=== PATIENT | female | born 1955 | race Caucasian/White ===

== ENCOUNTER → 2017-07-25 | Outpatient (CLI) | payer BC ==
[2016-11-16 13:26] VITALS: BP 118/77
--- NOTE | 2017-07-31 08:31 | MG ---
Examination: Bilateral screening mammogram. Clinical history: Routine screening. Technique: Digital CC and MLO views of both breasts were obtained. Computer aided detection analysis was performed and used during the interpretation. Comparison: 10/11/2015. Findings: The breasts are heterogeneously dense, reducing the sensitivity of mammography. Benign-appearing calc ifications are noted in the breasts bilaterally. No suspicious mass, area of architectural distortion or suspicious cluster of microcalcifications is noted. Impression: 1. No mammographic evidence of malignancy. BI-RADS category 2-benign findings. Recommend routine annual screening mammogram. Diagnostic CAD was utilized and reviewed. * 0 (ZERO) - ASSESSMENT INCOMPLETE; ADDITIONAL IMAGING IS NEEDED. * 0C - ASSESSMENT INCOMPLETE, NEEDS ADDITIONAL IMAGING EVALUATION AND/OR PRIOR MAMMOGRAMS FOR COMPARI SON. * 1/1 (ONE) - NEGATIVE. * 2/II (TWO) - BENIGN FINDINGS. * 3/III (THREE) - PROBABLY BENIGN FINDING; SHORT INTERVAL FOLLOW-UP SUGGESTED. * 4/IV (FOUR) - SUSPICIOUS ABNORMALITY; BIOPSY SHOULD BE CONSIDERED. * 5/V - HIGHLY SUSPICIOUS OF MALIGNANCY; BIOPSY SHOULD BE PERFORMED. * 6/IV - KNOWN BIOPSY PROVEN MALIGNANCY-APPROPRIATE ACTION SHOULD BE TAKEN. A NEGATIVE X-RAY REPORT SHOULD NOT DELAY BIOPSY IF A DOMINANT OR CLINICALLY SUSPICIOUS MASS IS PRESENT; 4 TO 8 PERCENT OF CANCERS ARE NOT IDENTIFIED BY X-RAY. A NEGATIVE REPORT MAY REINFORCE THE CLINICAL IMPRESSION. ADENOSIS AND DENSE BREASTS MAY OBSCURE AN UNDERLYING NEOPLASM. Reported By:
== END ==
LOC: RAD 07:52
PROVIDERS: ATTEND Internal Medicine
DX: Z12.31 Encounter for screening mammogram for malignant neoplasm of breast (principal)
CPT/HCPCS: 77067

== ENCOUNTER 2020-05-16 09:27 | Inpatient (IN) ==
[2020-05-16] MEDS ORDERED: REMDESIVIR (INVESTIGATIONAL DRUG GS-5734) IV ONE (11:00)
[2020-05-16] MEDS ORDERED: REMDESIVIR **DO NOT USE THIS ITEM# ** 200 MG in NS 250 ML IV 250 ML IV ONE (11:47)
[2020-05-16] MEDS ORDERED: DUONEB 0.5 MG/3 MG (3 mL) NEB ONE (12:01)
[2020-05-16] MEDS: DUONEB 0.5 MG/3 MG (3 mL) NEB SCH ×3 (12:25→21:00)
[2020-05-16 12:30] LABS: BASOPHILS % (AUTO) 0.2 % (0.2-1.0); HEMATOCRIT 38.8 % (36.0-47.0); HEMOGLOBIN 13.1 g/dL (12.0-16.0); LYMPHOCYTES # (AUTO) 0.7 X10^3/uL (1.3-2.9); LYMPHOCYTES % (AUTO) 14.2 % (21.0-51.0); MEAN CORPUSCULAR HEMOGLOBIN 30.2 pg (27.0-34.0); MEAN CORPUSCULAR HGB CONC 33.6 g/dL (33.0-35.0); MEAN CORPUSCULAR VOLUME 89.7 fL (80.0-100.0); MEAN PLATELET VOLUME 8.4 fL (7.4-11.0); MONOCYTES # (AUTO) 0.3 x10^3/uL (0.3-0.8); MONOCYTES % (AUTO) 5.3 % (0.0-13.0); NEUTROPHILS # (AUTO) 3.9 x10^3/uL (2.2-4.8); NEUTROPHILS % (AUTO) 80.3 % (42.0-75.0); PLATELET COUNT 100 X10^3/uL (150.0-450.0); RED BLOOD COUNT 4.33 X10^6/uL (3.5-5.4); RED CELL DISTRIBUTION WIDTH 13.9 % (11.6-16.5); WHITE BLOOD COUNT 4.9 X10^3/uL (3.6-10.0)
[2020-05-16 12:34] LABS: ABG BASE EXCESS 1.6 mmol/L (-2.0-2.0); ABG HCO3 23.7 mmol/L (22-26)
[2020-05-16 12:36] LABS: ABG ALLEN TEST POS
[2020-05-16 12:47] LABS: ALANINE AMINOTRANSFERASE 15 Units/L (12-78); ALBUMIN 2.6 g/dL (3.4-5.0); ALKALINE PHOSPHATASE 48 Units/L (46-116); ASPARTATE AMINO TRANSFERASE 28 Units/L (15-37); BLOOD UREA NITROGEN 10 mg/dL (7-18); CALCIUM 8.1 mg/dL (8.5-10.1); CARBON DIOXIDE 25.2 mmol/L (21-32); CHLORIDE 103 mmol/L (98-107); COR CA(FOR HYPOALB) 9.2 mg/dL (8.5-10.1); CREATININE 1.01 mg/dL (0.55-1.02); SODIUM 138 mmol/L (136-145); TOTAL PROTEIN 6.2 g/dL (6.4-8.2); eGFR NON BLACK RACES 59 (>60)
[2020-05-16] MEDS: PULMICORT NEB TX 0.5 MG NEB SCH ×2 (12:49→21:00)
--- NOTE | 2020-05-16 13:02 | RAD ---
CHEST, 1 VIEWHISTORY: PneumoniaStudy: Single view of the chest.Comparison:NoneFindings:The cardiomediastinal silhouette is normal. Bilateral interstitial prominence, possible early alveolar infiltrates. No focal consolidations, pleural effusions or pneumothorax. Osseous structures demonstrate no acute abnormality.IMPRESSION:1. Bilateral interstitial prominence and early alveolar infiltrates. Findings may represent atypical infection, including viral etiologies.Electronically signed by: PEGGY GÓMEZ (May 16, 2020 13:00:35)
[2020-05-16] MEDS ORDERED: K-RIDER 10 MEQ/NS 100 ML 10 MEQ/100 ML BAG IV PRN (13:41)
[2020-05-16] MEDS ORDERED: POTASSIUM CHL 60 MEQ/NS 0.45% 500 ML IV PRN (13:41)
[2020-05-16] MEDS ORDERED: POTASSIUM CHL 40 MEQ/NS 0.45% 500 ML IV PRN (13:41)
[2020-05-16] MEDS ORDERED: MICRO K EXTEN CAP 10 MEQ PO PRN (13:41)
[2020-05-16] MEDS ORDERED: KLOR-CON PO PRN (13:41)
[2020-05-16] MEDS ORDERED: NS 1/2 1000 ML IV 1,000 ML IV ONE (13:50)
[2020-05-16] MEDS: K-DUR TAB 20 MEQ PO PRN (14:07)
[2020-05-16] MEDS: ZINC SULFATE PO SCH (14:08)
[2020-05-16] MEDS: VSL#3 PO SCH (14:08)
[2020-05-16] MEDS: TESSALON PERLES PO SCH ×3 (14:08→21:40)
[2020-05-16] MEDS: TUSSIONEX PENNKINETIC SUSP PO SCH (14:09)
[2020-05-16] MEDS: ROBITUSSIN DM PO SCH ×5 (14:10→22:00)
[2020-05-16 14:12] VITALS: BMI 29.2
[2020-05-16] MEDS: NS 1/2 1000 ML IV 1,000 ML IV SCH (14:12)
[2020-05-16] MEDS: LEVAQUIN PREMIX IV 500 MG 500 MG/100 ML BAG IV SCH (14:12)
[2020-05-16] MEDS ORDERED: MORPHINE SULFATE INJ 2 MG INJ ONE (15:41)
[2020-05-16] MEDS ORDERED: PHENERGAN TAB 25 MG PO ONE (15:42)
[2020-05-16] MEDS ORDERED: ZOFRAN TAB 4 MG SL PRN (15:51)
[2020-05-16] MEDS ORDERED: MORPHINE SULFATE INJ 2 MG INJ IVP PRN (15:51)
[2020-05-16] MEDS: MAGNESIUM SULFATE 1 GRAM/100 mL PREMIX 1 GM/100 ML BAG IV PRN ×3 (20:21→23:43)
[2020-05-16] MEDS: NORCO 5/325 MG TAB PO PRN (20:23)
[2020-05-16] MEDS ORDERED: SOLU-Medrol 125 MG VIAL ONE (20:49)
[2020-05-16] MEDS: SOLU-Medrol 125 MG VIAL IVP SCH (21:39)
[2020-05-17] MEDS: MAGNESIUM SULFATE 1 GRAM/100 mL PREMIX 1 GM/100 ML BAG IV PRN (00:30)
[2020-05-17] MEDS: TUSSIONEX PENNKINETIC SUSP PO SCH ×2 (01:06→12:48)
[2020-05-17] MEDS: POTASSIUM CHLORIDE LIQ 20 MEQ UDC PO PRN (01:23)
[2020-05-17] MEDS: NS 1/2 1000 ML IV 1,000 ML IV SCH ×2 (03:41→17:41)
[2020-05-17 04:16] LABS: ABG ALLEN TEST POS; ABG BASE EXCESS 1.9 mmol/L (-2.0-2.0); ABG HCO3 25.6 mmol/L (22-26)
[2020-05-17] MEDS: TESSALON PERLES PO SCH ×3 (05:10→21:46)
[2020-05-17] MEDS: SOLU-Medrol 125 MG VIAL IVP SCH ×3 (05:10→21:47)
[2020-05-17 05:11] LABS: BASOPHILS % (AUTO) 0.1 % (0.2-1.0); HEMATOCRIT 37.3 % (36.0-47.0); HEMOGLOBIN 12.4 g/dL (12.0-16.0); LYMPHOCYTES # (AUTO) 0.2 X10^3/uL (1.3-2.9); MEAN CORPUSCULAR HEMOGLOBIN 30.1 pg (27.0-34.0); MEAN CORPUSCULAR HGB CONC 33.3 g/dL (33.0-35.0); MEAN CORPUSCULAR VOLUME 90.3 fL (80.0-100.0); MONOCYTES # (AUTO) 0.1 x10^3/uL (0.3-0.8); MONOCYTES % (AUTO) 3.9 % (0.0-13.0); PLATELET COUNT 98 X10^3/uL (150.0-450.0); RED BLOOD COUNT 4.13 X10^6/uL (3.5-5.4); WHITE BLOOD COUNT 3.4 X10^3/uL (3.6-10.0)
[2020-05-17 05:17] LABS: ALANINE AMINOTRANSFERASE 18 Units/L (12-78); ALBUMIN 2.3 g/dL (3.4-5.0); ALKALINE PHOSPHATASE 45 Units/L (46-116); ASPARTATE AMINO TRANSFERASE 34 Units/L (15-37); BLOOD UREA NITROGEN 7 mg/dL (7-18); CALCIUM 7.4 mg/dL (8.5-10.1); CHLORIDE 103 mmol/L (98-107); COR CA(FOR HYPOALB) 8.8 mg/dL (8.5-10.1); COR NA(FOR HYPERGLY) 138 mmol/L (136-145); CREATININE 0.82 mg/dL (0.55-1.02); MAGNESIUM 2.2 mg/dL (1.7-2.9); SODIUM 135 mmol/L (136-145); TOTAL PROTEIN 5.9 g/dL (6.4-8.2); eGFR NON BLACK RACES > 60 (>60)
--- NOTE | 2020-05-17 06:29 | RAD ---
HISTORYSOBSTUDYCHEST, 1 [id number]/02/2020FINDINGSThe trachea is midline. The cardiac silhouette is unremarkable. Patchy left upper lobe infiltrate. The at infiltrates also suspected in the right upper and right lung base. No pleural effusion or pneumothorax. Left Port-A-Cath unchanged.. The bony thorax is unremarkable.IMPRESSIONLeft upper lobe infiltrate, unchanged. Suspected patchy infiltrates within the right upper and right lower lung jacobs.Electronically signed by: Vin Velazquez (May 17, 2020 06:28:33)
[2020-05-17] MEDS: ZINC SULFATE PO SCH (08:25)
[2020-05-17] MEDS: LEVAQUIN PREMIX IV 500 MG 500 MG/100 ML BAG IV SCH (08:25)
[2020-05-17] MEDS: VSL#3 PO SCH (08:26)
[2020-05-17] MEDS: ROBITUSSIN DM PO SCH ×4 (08:26→21:46)
[2020-05-17] MEDS ORDERED: REMDESIVIR (INVESTIGATIONAL DRUG GS-5734) IV ONE (09:00)
[2020-05-17] MEDS: DUONEB 0.5 MG/3 MG (3 mL) NEB SCH ×2 (09:15→12:00)
[2020-05-17] MEDS: PULMICORT NEB TX 0.5 MG NEB SCH ×2 (09:15→21:50)
[2020-05-17] MEDS: REMDESIVIR **DO NOT USE THIS ITEM# ** 100 MG in NS 250 ML IV 250 ML IV SCH (09:49)
[2020-05-17] MEDS: LOVENOX INJ 40 MG SYR SC SCH (09:50)
[2020-05-17] MEDS: NORCO 5/325 MG TAB PO PRN (10:23)
[2020-05-17] MEDS: MAXZIDE 37.5/25 MG PO SCH (12:49)
[2020-05-17] MEDS: MICRO K EXTEN CAP 10 MEQ PO SCH ×2 (12:49→21:44)
[2020-05-17] MEDS: SINGULAIR TAB 10 MG PO SCH (12:54)
[2020-05-17] MEDS: FLONASE NASAL SPRAY ENOSTRIL SCH (12:55)
[2020-05-17] MEDS: PEPCID TAB 20 MG PO SCH ×2 (12:55→21:45)
[2020-05-17] MEDS: SYNTHROID 137 mcg TAB PO SCH (12:55)
[2020-05-17] MEDS ORDERED: NS 1/2 1000 ML IV 1,000 ML IV ONE (13:51)
[2020-05-17] MEDS ORDERED: XOPENEX 1.25 MG/3 ML NEBULE NEB ONE (16:22)
[2020-05-17] MEDS: XOPENEX 1.25 MG/3 ML NEBULE NEB SCH (17:10)
--- NOTE | 2020-05-17 21:27 | DR.H&P ---
H&P - History & Physical for Day of: H&P Date: 05/16/20 - Chief Complaint Chief Complaint: COUGH, SOB, FEVER, WEAKNESS, GENERALIZED PAIN - History of Present Illness History of Present Illness: IS A 64 YEAR OLD PATIENT OF OURS. SHE PRESENTED TO THE HOSPITAL A DIRECT ADMISSION DUE TO COMPLAINTS OF SHORTENSS OF BREATH, COUGH, FEVER, WEAKNESS, AND GENERALIZED PAIN X 1 WEEK. SHE HAS TESTED POSITIVE FOR COVID-19 AND HAS BEEN TAKING LEVAQUIN, AZITHROMYCIN, TESSALON PERLES TID, A MEDROL DOSE PACK, AND NEB TX AT HOME. SHE DENIES IMPROVEMENT IN SYMPTOMS. SHE REPORTS THAT HER OXYGEN SATURATIONS HAVE BEEN 87%-89% ON ROOM AIR. ON ARRIVAL TO THE ER, VITALS WERE 100.8-64-22-88%RA-114/66. LABS WERE OBTAINED. ABNORMAL LAB VALUES INCLUDE THE FOLLOWING: PLT COUNT 100, PH 7.520, PC02 29.0, P02 50.0, HC03 23.7, 02 SATURATION 89.0, BASE EXCESS 1.6, FI02 21.0. BLOOD AND SPUTUM CULTURES WERE SET UP. A CHEST XRAY WAS OBTAINED AND REVEALED: 1. Bilateral interstitial prominence and early alveolar infiltrates. Findings may represent atypical infection, including viral etiologies. SHE WAS PLACED ON NASAL CANNULA WITH OXYGEN AT 2L/MIN. OXYGEN SATURATIONS REMAINED 89%-LOW 90s. SHE WAS STARTED ON 1/2NS AT 75 ML/HR, REMDESIVIR 200MG IV X 1, THEN 100MG IV DAILY, SOLU-MEDROL 125MG IV Q8H, LEVAQUIN 500MG IV DIALY, PULMICORT NEBS BID, XOPENEX NEBS Q6H, LOVENOX 40MG SC DAILY, TUSSIONEX 5ML PO Q12H, ROBITUSSIN DM 0ML PO QID, TESSALON PERLES 200MG PO TID, THE POTASSIUM AND MAGNESIUM PROTOCOLS, AND HER HOME MEDICATIONS WERE RESUMED. OTHERWISE, WE WILL FOLLOW UP WITH AM LABS, CHEST XRAY, ABG, AND CONTINUE TO MONITOR. - Past Medical History Past Medical History: Dyslipidemia, GERD, Hypertension, Hypothyroidism Additional Medical History: MITRAL VALVE PROLAPSE, VALVULAR HEART DISEASE, DIVERTICULOSIS, STRESS INCONTINENCE, MELANOMA - Past Surgical History Surgical History: Hysterectomy Additional Surgical History: SKIN GRAFT LEFT KNEE, MELANOMA REMOVED FROM BACK, ACL REPAIR - Family History Family Medical History: Hypertension - Social History Does patient currently use any type of tobacco product: No Have you used tobacco products in the last 12 months: No Type of Tobacco Use: None Does any household member use tobacco: No Alcohol Use: None Drug Use: None - Medications Home Medications: indomethacin [From Indocin] Adverse Reaction (Verified 05/16/20 13:43) CONTINUE taking the following medications atorvastatin 10 mg PO DAILYHS 05/16/20 [History] clonazepam 1 mg PO DAILYHS 05/16/20 [History] famotidine 40 mg BID 05/16/20 [History] halobetasol propionate 1 applic TOPICAL PRN PRN 05/16/20 [History] levothyroxine 137 mcg PO DAILY 05/16/20 [History] montelukast 10 mg PO DAILY 05/16/20 [History] potassium chloride 10 meq PO BID 05/16/20 [History] fluticasone propionate 2 spray INTRANASAL DAILY 05/17/20 [History] triamterene-hydrochlorothiazid 1 tab PO DAILY 05/17/20 [History] - Review of Systems Constitutional: Fever, Chills, Weakness Eyes: No Symptoms Reported ENT: No Symptoms Reported Respiratory: See HPI, Cough, Shortness of Breath, SOB with Excertion, Wheezing Cardiovascular: No Symptoms Reported Gastrointestinal: No Symptoms Reported Genitourinary: No Symptoms Reported Musculoskeletal: No Symptoms Reported Skin: No Symptoms Reported Neurological: Weakness - Physical Exam Vital Signs: Temperature 98.1 F Pulse Rate 80 Respiratory Rate 31 Blood Pressure 117/60 O2 Sat by Pulse Oximetry 97 Oriented: Normal Eyes: Normal Ear: Normal Nose: Normal Throat: Normal Respiratory: Rhonchi Throughout, Wheezes Throughout Cardiovascular: Normal : Normal Auscultation: Bowel Sounds: Normal Palpation: Normal Tenderness: Normal Skin: Normal Musculoskeletal: Normal Psychiatric: Normal Mood Description: Calm Affect: Normal Speech Pattern: Clear - Assessment/Plan (1) Pneumonia due to COVID-19 virus Status: Acute Plan: ADMIT, 1/2NS AT 75 ML/HR, REMDESIVIR 200MG IV X 1, THEN 100MG IV DAILY, SOLU-MEDROL 125MG IV Q8H, LEVAQUIN 500MG IV DIALY, PULMICORT NEBS BID, XOPENEX NEBS Q6H, LOVENOX 40MG SC DAILY, TUSSIONEX 5ML PO Q12H, ROBITUSSIN DM 0ML PO QID, TESSALON PERLES 200MG PO TID, THE POTASSIUM AND MAGNESIUM PROTOCOLS, AND HER HOME MEDICATIONS WERE RESUMED. (2) Hypoxia Status: Acute (3) Hypokalemia Status: Acute (4) Melanoma Qualifiers: Melanoma location: unspecified site Qualified Code(s): C43.9 - Malignant melanoma of skin, unspecified Status: Chronic - Allergies Allergies/Adverse Reactions: Allergies Allergy/AdvReac Type Severity Reaction Status Date / Time indomethacin [From Indocin] AdvReac Verified 05/16/20 13:43
[2020-05-17] MEDS: LIPITOR TAB 10 MG PO SCH (21:43)
[2020-05-17] MEDS: KLONOPIN TAB 1 MG PO SCH (21:43)
[2020-05-18] MEDS: TUSSIONEX PENNKINETIC SUSP PO SCH ×3 (00:31→23:55)
[2020-05-18] MEDS: XOPENEX 1.25 MG/3 ML NEBULE NEB SCH ×4 (00:45→17:35)
[2020-05-18] MEDS ORDERED: NS 1/2 1000 ML IV 1,000 ML IV ONE (02:22)
[2020-05-18] MEDS: NS 1/2 1000 ML IV 1,000 ML IV SCH ×3 (03:00→22:04)
[2020-05-18 05:08] LABS: BASOPHILS % (AUTO) 0.1 % (0.2-1.0); HEMATOCRIT 36.6 % (36.0-47.0); HEMOGLOBIN 12.4 g/dL (12.0-16.0); LYMPHOCYTES # (AUTO) 0.7 X10^3/uL (1.3-2.9); LYMPHOCYTES % (AUTO) 8.6 % (21.0-51.0); MEAN CORPUSCULAR HEMOGLOBIN 30.3 pg (27.0-34.0); MEAN CORPUSCULAR HGB CONC 33.9 g/dL (33.0-35.0); MEAN CORPUSCULAR VOLUME 89.4 fL (80.0-100.0); MEAN PLATELET VOLUME 8.5 fL (7.4-11.0); MONOCYTES # (AUTO) 0.3 x10^3/uL (0.3-0.8); MONOCYTES % (AUTO) 4.2 % (0.0-13.0); NEUTROPHILS % (AUTO) 87.1 % (42.0-75.0); PLATELET COUNT 120 X10^3/uL (150.0-450.0); RED CELL DISTRIBUTION WIDTH 13.8 % (11.6-16.5)
[2020-05-18 05:19] LABS: ALANINE AMINOTRANSFERASE 21 Units/L (12-78); ALBUMIN 2.3 g/dL (3.4-5.0); ALKALINE PHOSPHATASE 47 Units/L (46-116); ASPARTATE AMINO TRANSFERASE 36 Units/L (15-37); BLOOD UREA NITROGEN 10 mg/dL (7-18); CARBON DIOXIDE 25.4 mmol/L (21-32); CHLORIDE 103 mmol/L (98-107); COR CA(FOR HYPOALB) 9.4 mg/dL (8.5-10.1); COR NA(FOR HYPERGLY) 140 mmol/L (136-145); CREATININE 0.87 mg/dL (0.55-1.02); SODIUM 137 mmol/L (136-145); TOTAL PROTEIN 5.9 g/dL (6.4-8.2); eGFR NON BLACK RACES > 60 (>60)
[2020-05-18 05:33] LABS: ABG HCO3 27.4 mmol/L (22-26)
[2020-05-18 05:34] LABS: ABG ALLEN TEST POS
[2020-05-18] MEDS: SOLU-Medrol 125 MG VIAL IVP SCH ×3 (05:43→22:07)
[2020-05-18] MEDS: TESSALON PERLES PO SCH ×3 (05:43→22:07)
--- NOTE | 2020-05-18 06:07 | RAD ---
HISTORYSOBSTUDYCHEST, 1 [id number]/03/2020FINDINGSThe trachea is midline. The cardiac silhouette is unremarkable. Patchy bilateral infiltrates, unchanged. No pleural effusion on the left.. Left Port-A-Cath, unchanged. The bony thorax is unremarkable.IMPRESSIONPatchy bilateral interstitial infiltrates; no significant change from 05/17/2020Electronically signed by: Vin Velazquez (May 18, 2020 06:06:48)
[2020-05-18] MEDS: K-DUR TAB 20 MEQ PO PRN ×4 (06:14→17:30)
[2020-05-18] MEDS: REMDESIVIR **DO NOT USE THIS ITEM# ** 100 MG in NS 250 ML IV 250 ML IV SCH (08:44)
[2020-05-18] MEDS: FLONASE NASAL SPRAY ENOSTRIL SCH (08:44)
[2020-05-18] MEDS: LOVENOX INJ 40 MG SYR SC SCH (08:46)
[2020-05-18] MEDS: MAXZIDE 37.5/25 MG PO SCH (08:47)
[2020-05-18] MEDS: MICRO K EXTEN CAP 10 MEQ PO SCH ×2 (08:47→21:00)
[2020-05-18] MEDS: PEPCID TAB 20 MG PO SCH ×2 (08:48→21:00)
[2020-05-18] MEDS: ROBITUSSIN DM PO SCH ×4 (08:48→21:00)
[2020-05-18] MEDS: SYNTHROID 137 mcg TAB PO SCH (08:49)
[2020-05-18] MEDS: SINGULAIR TAB 10 MG PO SCH (08:49)
[2020-05-18] MEDS: ZINC SULFATE PO SCH (08:50)
[2020-05-18] MEDS: VSL#3 PO SCH (08:50)
[2020-05-18] MEDS ORDERED: REMDESIVIR (INVESTIGATIONAL DRUG GS-5734) IV ONE (09:00)
[2020-05-18] MEDS: PULMICORT NEB TX 0.5 MG NEB SCH ×2 (09:25→21:10)
[2020-05-18] MEDS: LEVAQUIN PREMIX IV 500 MG 500 MG/100 ML BAG IV SCH (10:05)
[2020-05-18] MEDS: ALBUMIN HUMAN 25%- 100 ML 100 ML IV SCH (11:17)
[2020-05-18] MEDS: PROCALAMINE 3 % 1,000 ML IV SCH (11:18)
[2020-05-18] MEDS: PHENERGAN TAB 25 MG PO PRN (13:50)
--- NOTE | 2020-05-18 18:45 | PCM.PROG ---
Progress Note - Progress Note for Day of Date of Exam: 05/17/20 - Subjective Subjective: IS BEING TREATED FOR PNEUMONIA DUE TO COVID-19, PNEUMONIA, AND HYPOXIA. TODAY, SHE IS ALERT AND ORIENTED, LYING IN BED ON MORNING ROUNDS. SHE CONTINUES WITH SHORTNESS OF BREATH AND COUGH TODAY. SHE REPORTS INCREASE IN SHORTNESS OF BREATH TODAY. SHE IS UTILIZING NASAL CANNULA AT 3 LPM. ON EXAMINATION, HEART IS REGULAR IN RATE AND RHYTHM. BILATERAL LUNGS ARE NOTED WITH SCATTERED WHEEZING AND RHONCHI THROUGHOUT. ABDOMEN IS ROUND, SOFT, AND NON-TENDER WITH NORMAL BOWEL SOUNDS NOTED IN ALL QUADRANTS. HER VITALS THIS MORNING ARE: 98.2-70-33-98%-123/71. LABS WERE OBTAINED. ABNORMAL LAB VALUES INCLUDE THE FOLLOWING: WBC 3.4, PLT COUNT 98, SODIUM 135, GLUCOSE 237, GLUCOSE 236, CALCIUM 8.0, FERRITIN 382, CRP 118.50, TOTAL PROTEIN 5.9, ALBUMIN 2.3. AN ABG WAS REPEATED THIS MORNING AND REVEALED: PH 7.460, PC02 36.0, P02 51.0, HC03 25.6, 02 SATURATION 88.0, FI02 32.0. BLOOD AND SPUTUM CULTURES ARE PENDING. A CHEST XRAY WAS OBTAINED AND REVEALED: Left upper lobe infiltrate, unchanged. Suspected patchy infiltrates within the right upper and right lower lung jacobs. SHE IS CURRENTLY RECEIVING 1/2NS AT 75 ML/HR, REMDESIVIR 100MG IV DAILY, SOLU- MEDROL 125MG IV Q8H, LEVAQUIN 500MG IV DAILY, PULMICORT NEBS BID, XOPENEX NEBS Q6H, LOVENOX 40MG SC DAILY, TUSSIONEX 5ML PO Q12H, ROBITUSSIN DM 0ML PO QID, TESSALON PERLES 200MG PO TID, THE POTASSIUM AND MAGNESIUM PROTOCOLS, AND HER HOME MEDICATIONS WERE RESUMED. WE WILL CONTINUE WITH CURRENT PLAN OF CARE TODAY. OTHERWISE, WE PLAN TO FOLLOW UP WITH AM LABS AND CONTINUE TO MONITOR. - Past Medical Family Social History Past Med/Fam/Surg Hx: No changes since H&P Allergies: Allergies indomethacin [From Indocin] Adverse Reaction (Verified 05/16/20 13:43) - Review of Systems ROS: No change since H&P - Vital Signs and I&O's Vital Signs: Temperature 98.8 F Pulse Rate 86 Respiratory Rate 22 Blood Pressure 126/66 O2 Sat by Pulse Oximetry 94 Intake and Output: Intake & Output 05/16/20 05/17/20 05/18/20 05/19/20 11:59 11:59 11:59 11:59 Intake Total 2620 / 2620 2793 / 2793 Balance 2619 / 2620 2793 / 2793 - Physical Exam Oriented: Normal Eyes: Normal Ear: Normal Nose: Normal Throat: Normal Cardiovascular: Normal : Normal Auscultation: Bowel Sounds: Normal Palpation: Normal Tenderness: Normal Skin: Normal Musculoskeletal: Normal Psychiatric: Normal Mood Description: Calm Affect: Normal Speech Pattern: Clear, Appropriate - Laboratory and Diagnostics Result Diagrams: 05/18/20 04:51 05/18/20 16:50 Labs: 05/16/20 12:10 Blood Blood Culture - Preliminary 05/16/20 12:00 Blood Blood Culture - Preliminary 05/17/20 09:38 Sputum - Expectorated Sputum Sputum Culture - Preliminary 05/17/20 09:38 Sputum - Expectorated Sputum - Final Laboratory WBC 8.0 X10^3/uL (3.6-10.0) 05/18/20 04:51 RBC 4.10 X10^6/uL (3.5-5.4) 05/18/20 04:51 Hgb 12.4 g/dL (12.0-16.0) 05/18/20 04:51 Hct 36.6 % (36.0-47.0) 05/18/20 04:51 MCV 89.4 fL (80.0-100.0) 05/18/20 04:51 MCH 30.3 pg (27.0-34.0) 05/18/20 04:51 MCHC 33.9 g/dL (33.0-35.0) 05/18/20 04:51 RDW 13.8 % (11.6-16.5) 05/18/20 04:51 Plt Count 120 X10^3/uL (150.0-450.0) L 05/18/20 04:51 MPV 8.5 fL (7.4-11.0) 05/18/20 04:51 Neut % (Auto) 87.1 % (42.0-75.0) H 05/18/20 04:51 Lymph % (Auto) 8.6 % (21.0-51.0) L 05/18/20 04:51 [place] % (Auto) 4.2 % (0.0-13.0) 05/18/20 04:51 Eos % (Auto) 0.0 % (0.9-2.9) L 05/18/20 04:51 Baso % (Auto) 0.1 % (0.2-1.0) L 05/18/20 04:51 Neut # (Auto) 7.0 x10^3/uL (2.2-4.8) H 05/18/20 04:51 Lymph # (Auto) 0.7 X10^3/uL (1.3-2.9) L 05/18/20 04:51 [place] # (Auto) 0.3 x10^3/uL (0.3-0.8) 05/18/20 04:51 Eos # (Auto) 0.0 x10^3/uL (0.0-0.2) 05/18/20 04:51 Baso # (Auto) 0.0 X10^3/uL (0.0-0.1) 05/18/20 04:51 Absolute Nucleated RBC 0.0 /100WBC 05/18/20 04:51 Sample Site Rr 05/18/20 05:00 ABG pH 7.490 (7.35-7.45) H 05/18/20 05:00 ABG pCO2 36.0 mmHg (35.0-45.0) 05/18/20 05:00 ABG pO2 55.0 mmHg (80.0-100.0) L 05/18/20 05:00 ABG HCO3 27.4 mmol/L (22-26) H 05/18/20 05:00 ABG O2 Saturation 91.0 % (90-100) 05/18/20 05:00 ABG Base Excess 4.0 mmol/L (-2.0-2.0) H 05/18/20 05:00 Juan Test Pos 05/18/20 05:00 A-a Gradient 128.0 mmHg 05/18/20 05:00 FiO2 32.0 05/18/20 05:00 Blood Gas Comments Rola well sw 05/18/20 05:00 Sodium 137 mmol/L (136-145) 05/18/20 04:51 Corrected Sodium 140 mmol/L (136-145) 05/18/20 04:51 Potassium 3.2 mmol/L (3.5-5.1) L 05/18/20 16:50 Chloride 103 mmol/L (98-107) 05/18/20 04:51 Carbon Dioxide 25.4 mmol/L (21-32) 05/18/20 04:51 BUN 10 mg/dL (7-18) 05/18/20 04:51 Creatinine 0.87 mg/dL (0.55-1.02) 05/18/20 04:51 Est GFR (MDRD) Af Amer > 60 (>60) 05/18/20 04:51 Est GFR (MDRD) Non-Af > 60 (>60) 05/18/20 04:51 Glucose 236 mg/dL (65-99) H 05/18/20 04:51 Calcium 8.0 mg/dL (8.5-10.1) L 05/18/20 04:51 Corrected Calcium 9.4 mg/dL (8.5-10.1) 05/18/20 04:51 Magnesium 2.2 mg/dL (1.7-2.9) 05/17/20 04:31 Ferritin 382 ng/mL (8-252) H 05/18/20 04:51 Total Bilirubin 0.20 mg/dL (0.2-1.0) 05/18/20 04:51 AST 36 Units/L (15-37) 05/18/20 04:51 ALT 21 Units/L (12-78) 05/18/20 04:51 Alkaline Phosphatase 47 Units/L (46-116) 05/18/20 04:51 C-Reactive Protein 118.50 mg/L (0-3.0) H 05/18/20 04:51 Total Protein 5.9 g/dL (6.4-8.2) L 05/18/20 04:51 Albumin 2.3 g/dL (3.4-5.0) L 05/18/20 04:51 Globulin 3.6 g/dL (2.5-4.5) 05/18/20 04:51 Albumin/Globulin Ratio 0.6 Ratio (1.1-2.1) L 05/18/20 04:51 - Plan (1) Pneumonia due to COVID-19 virus Status: Acute Plan: 1/2NS AT 75 ML/HR, REMDESIVIR 100MG IV DAILY, SOLU-MEDROL 125MG IV Q8H, LEVAQUIN 500MG IV DIALY, PULMICORT NEBS BID, XOPENEX NEBS Q6H, LOVENOX 40MG SC DAILY, TUSSIONEX 5ML PO Q12H, ROBITUSSIN DM 0ML PO QID, TESSALON PERLES 200MG PO TID, THE POTASSIUM AND MAGNESIUM PROTOCOLS, AND HER HOME MEDICATIONS WERE RESUMED. (2) Hypoxia Status: Acute (3) Hypokalemia Status: Acute (4) Melanoma Status: Chronic Qualifiers: Melanoma location: unspecified site Qualified Code(s): C43.9 - Malignant melanoma of skin, unspecified
[2020-05-18] MEDS: LIPITOR TAB 10 MG PO SCH ×2 (21:00→22:06)
[2020-05-18] MEDS: KLONOPIN TAB 1 MG PO SCH (21:00)
[2020-05-18] MEDS: NORCO 5/325 MG TAB PO PRN (21:00)
--- NOTE | 2020-05-18 21:56 | PCM.PROG ---
Progress Note - Progress Note for Day of Date of Exam: 05/18/20 - Subjective Subjective: IS BEING TREATED FOR PNEUMONIA DUE TO COVID-19, PNEUMONIA, AND HYPOXIA. TODAY, SHE IS ALERT AND ORIENTED, LYING IN BED ON MORNING ROUNDS. SHE CONTINUES WITH SHORTNESS OF BREATH, WEAKNESS, AND COUGH TODAY. SHE DENIES IMPROVEMENT IN SYMPTOMS TODAYSHE IS UTILIZING NASAL CANNULA AT 3 LPM. ON EXAMINATION, HEART IS REGULAR IN RATE AND RHYTHM. BILATERAL LUNGS ARE NOTED WITH SCATTERED WHEEZING AND RHONCHI THROUGHOUT. ABDOMEN IS ROUND, SOFT, AND NON-TENDER WITH NORMAL BOWEL SOUNDS NOTED IN ALL QUADRANTS. HER VITALS THIS MORNING ARE: 97.7-97-22-97%-137/64. LABS WERE OBTAINED. ABNORMAL LAB VALUES INCLUDE THE FOLLOWING: POTASSIUM 3.1, GLUCOSE 236, CALCIUM 8.0, FERRITIN 382, CRP 118.50, TOTAL PROTEIN 5.9, ALBUMIN 2.3. AN ABG WAS REPEATED THIS MORNING AND REVEALED: PH 7.490, PC02 36.0, P02 55.0, HC03 27.4, 02 SATURATION 91, BASE EXCESS 4.0, FI02 32.0. BLOOD AND SPUTUM CULTURES ARE PENDING. A CHEST XRAY WAS OBTAINED AND REVEALED: Patchy bilateral interstitial infiltrates; no significant change from 05/17/2020. SHE IS CURRENTLY RECEIVING 1/2NS AT 75 ML/HR, REMDESIVIR 100MG IV DAILY, SOLU-MEDROL 125MG IV Q8H, LEVAQUIN 500MG IV DAILY, PULMICORT NEBS BID, XOPENEX NEBS Q6H, LOVENOX 40MG SC DAILY, TUSSIONEX 5ML PO Q12H, ROBITUSSIN DM 0ML PO QID, TESSALON PERLES 200MG PO TID, THE POTASSIUM AND MAGNESIUM PROTOCOLS, AND HER HOME MEDICATIONS WERE RESUMED. WE WILL CONTINUE WITH CURRENT PLAN OF CARE TODAY AND ADD PROCALAMINE 40% IV AT 40ML/HR AND ALBUMIN 25% IV DAILY. OTHERWISE, WE PLAN TO FOLLOW UP WITH AM LABS AND CHEST XRAY AND CONTINUE TO MONITOR. - Past Medical Family Social History Past Med/Fam/Surg Hx: No changes since H&P Allergies: Allergies indomethacin [From Indocin] Adverse Reaction (Verified 05/16/20 13:43) - Review of Systems ROS: No change since H&P - Vital Signs and I&O's Vital Signs: Temperature 99.1 F Pulse Rate 82 Respiratory Rate 25 Blood Pressure 132/67 O2 Sat by Pulse Oximetry 95 Intake and Output: Intake & Output 05/16/20 05/17/20 05/18/20 05/19/20 11:59 11:59 11:59 11:59 Intake Total 2620 / 2620 2793 / 2793 1200 / 1200 Balance 2620 / 2620 2793 / 2793 1200 / 1200 - Physical Exam Oriented: Normal Eyes: Normal Ear: Normal Nose: Normal Throat: Normal Cardiovascular: Normal : Normal Auscultation: Bowel Sounds: Normal Tenderness: Normal Skin: Normal Musculoskeletal: Normal Psychiatric: Normal Mood Description: Calm Affect: Normal Speech Pattern: Clear, Appropriate - Laboratory and Diagnostics Result Diagrams: 05/18/20 04:51 05/18/20 16:50 Labs: 05/16/20 12:10 Blood Blood Culture - Preliminary 05/16/20 12:00 Blood Blood Culture - Preliminary 05/17/20 09:38 Sputum - Expectorated Sputum Sputum Culture - Preliminary 05/17/20 09:38 Sputum - Expectorated Sputum - Final Laboratory WBC 8.0 X10^3/uL (3.6-10.0) 05/18/20 04:51 RBC 4.10 X10^6/uL (3.5-5.4) 05/18/20 04:51 Hgb 12.4 g/dL (12.0-16.0) 05/18/20 04:51 Hct 36.6 % (36.0-47.0) 05/18/20 04:51 MCV 89.4 fL (80.0-100.0) 05/18/20 04:51 MCH 30.3 pg (27.0-34.0) 05/18/20 04:51 MCHC 33.9 g/dL (33.0-35.0) 05/18/20 04:51 RDW 13.8 % (11.6-16.5) 05/18/20 04:51 Plt Count 120 X10^3/uL (150.0-450.0) L 05/18/20 04:51 MPV 8.5 fL (7.4-11.0) 05/18/20 04:51 Neut % (Auto) 87.1 % (42.0-75.0) H 05/18/20 04:51 Lymph % (Auto) 8.6 % (21.0-51.0) L 05/18/20 04:51 [place] % (Auto) 4.2 % (0.0-13.0) 05/18/20 04:51 Eos % (Auto) 0.0 % (0.9-2.9) L 05/18/20 04:51 Baso % (Auto) 0.1 % (0.2-1.0) L 05/18/20 04:51 Neut # (Auto) 7.0 x10^3/uL (2.2-4.8) H 05/18/20 04:51 Lymph # (Auto) 0.7 X10^3/uL (1.3-2.9) L 05/18/20 04:51 [place] # (Auto) 0.3 x10^3/uL (0.3-0.8) 05/18/20 04:51 Eos # (Auto) 0.0 x10^3/uL (0.0-0.2) 05/18/20 04:51 Baso # (Auto) 0.0 X10^3/uL (0.0-0.1) 05/18/20 04:51 Absolute Nucleated RBC 0.0 /100WBC 05/18/20 04:51 Sample Site Rr 05/18/20 05:00 ABG pH 7.490 (7.35-7.45) H 05/18/20 05:00 ABG pCO2 36.0 mmHg (35.0-45.0) 05/18/20 05:00 ABG pO2 55.0 mmHg (80.0-100.0) L 05/18/20 05:00 ABG HCO3 27.4 mmol/L (22-26) H 05/18/20 05:00 ABG O2 Saturation 91.0 % (90-100) 05/18/20 05:00 ABG Base Excess 4.0 mmol/L (-2.0-2.0) H 05/18/20 05:00 Juan Test Pos 05/18/20 05:00 A-a Gradient 128.0 mmHg 05/18/20 05:00 FiO2 32.0 05/18/20 05:00 Blood Gas Comments Rola well sw 05/18/20 05:00 Sodium 137 mmol/L (136-145) 05/18/20 04:51 Corrected Sodium 140 mmol/L (136-145) 05/18/20 04:51 Potassium 3.2 mmol/L (3.5-5.1) L 05/18/20 16:50 Chloride 103 mmol/L (98-107) 05/18/20 04:51 Carbon Dioxide 25.4 mmol/L (21-32) 05/18/20 04:51 BUN 10 mg/dL (7-18) 05/18/20 04:51 Creatinine 0.87 mg/dL (0.55-1.02) 05/18/20 04:51 Est GFR (MDRD) Af Amer > 60 (>60) 05/18/20 04:51 Est GFR (MDRD) Non-Af > 60 (>60) 05/18/20 04:51 Glucose 236 mg/dL (65-99) H 05/18/20 04:51 Calcium 8.0 mg/dL (8.5-10.1) L 05/18/20 04:51 Corrected Calcium 9.4 mg/dL (8.5-10.1) 05/18/20 04:51 Magnesium 2.2 mg/dL (1.7-2.9) 05/17/20 04:31 Ferritin 382 ng/mL (8-252) H 05/18/20 04:51 Total Bilirubin 0.20 mg/dL (0.2-1.0) 05/18/20 04:51 AST 36 Units/L (15-37) 05/18/20 04:51 ALT 21 Units/L (12-78) 05/18/20 04:51 Alkaline Phosphatase 47 Units/L (46-116) 05/18/20 04:51 C-Reactive Protein 118.50 mg/L (0-3.0) H 05/18/20 04:51 Total Protein 5.9 g/dL (6.4-8.2) L 05/18/20 04:51 Albumin 2.3 g/dL (3.4-5.0) L 05/18/20 04:51 Globulin 3.6 g/dL (2.5-4.5) 05/18/20 04:51 Albumin/Globulin Ratio 0.6 Ratio (1.1-2.1) L 05/18/20 04:51 - Plan (1) Pneumonia due to COVID-19 virus Status: Acute Plan: 1/2NS AT 75 ML/HR, PROCAL AT 40 ML/HR, ALBUMIN 25% IV DAILY, REMDESIVIR 100MG IV DAILY, SOLU-MEDROL 125MG IV Q8H, LEVAQUIN 500MG IV DIALY, PULMICORT NEBS BID, XOPENEX NEBS Q6H, LOVENOX 40MG SC DAILY, TUSSIONEX 5ML PO Q12H, ROBITUSSIN DM 0ML PO QID, TESSALON PERLES 200MG PO TID, THE POTASSIUM AND MAGNESIUM PROTOCOLS, AND HER HOME MEDICATIONS WERE RESUMED. (2) Hypoxia Status: Acute (3) Hypokalemia Status: Acute (4) Melanoma Status: Chronic Qualifiers: Melanoma location: unspecified site Qualified Code(s): C43.9 - Malignant melanoma of skin, unspecified
[2020-05-19] MEDS: XOPENEX 1.25 MG/3 ML NEBULE NEB SCH ×4 (00:04→17:05)
[2020-05-19] MEDS: PHENERGAN TAB 25 MG PO PRN (01:12)
[2020-05-19] MEDS ORDERED: NS 1/2 1000 ML IV 1,000 ML IV ONE (04:24)
[2020-05-19 05:13] LABS: BASOPHILS % (AUTO) 0 % (0.2-1.0); HEMATOCRIT 36.8 % (36.0-47.0); LYMPHOCYTES # (AUTO) 0.6 X10^3/uL (1.3-2.9); LYMPHOCYTES % (AUTO) 5.5 % (21.0-51.0); MEAN CORPUSCULAR HEMOGLOBIN 29.4 pg (27.0-34.0); MEAN CORPUSCULAR HGB CONC 32.7 g/dL (33.0-35.0); MEAN CORPUSCULAR VOLUME 89.9 fL (80.0-100.0); MEAN PLATELET VOLUME 8.7 fL (7.4-11.0); MONOCYTES # (AUTO) 0.5 x10^3/uL (0.3-0.8); MONOCYTES % (AUTO) 4.5 % (0.0-13.0); NEUTROPHILS # (AUTO) 9.9 x10^3/uL (2.2-4.8); PLATELET COUNT 156 X10^3/uL (150.0-450.0); RED BLOOD COUNT 4.09 X10^6/uL (3.5-5.4); RED CELL DISTRIBUTION WIDTH 14.2 % (11.6-16.5)
[2020-05-19] MEDS: SOLU-Medrol 125 MG VIAL IVP SCH ×3 (05:21→21:04)
[2020-05-19] MEDS: NS 1/2 1000 ML IV 1,000 ML IV SCH ×3 (05:22→23:52)
[2020-05-19 05:33] LABS: ALANINE AMINOTRANSFERASE 23 Units/L (12-78); ALBUMIN 2.6 g/dL (3.4-5.0); ALKALINE PHOSPHATASE 50 Units/L (46-116); ASPARTATE AMINO TRANSFERASE 30 Units/L (15-37); BLOOD UREA NITROGEN 11 mg/dL (7-18); CALCIUM 8.2 mg/dL (8.5-10.1); CARBON DIOXIDE 26.8 mmol/L (21-32); CHLORIDE 104 mmol/L (98-107); COR CA(FOR HYPOALB) 9.3 mg/dL (8.5-10.1); COR NA(FOR HYPERGLY) 143 mmol/L (136-145); SODIUM 139 mmol/L (136-145); TOTAL PROTEIN 5.9 g/dL (6.4-8.2); eGFR NON BLACK RACES > 60 (>60)
--- NOTE | 2020-05-19 06:17 | RAD ---
HISTORYSOBSTUDYCHEST, 1 VIEWCOMPARISON[One day prior]TECHNIQUE[AP view of the chest.]FINDINGS[Left chest wall port with tip in stable position. Cardiac and mediastinal contours appear normal. Stable bilateral multifocal airspace disease. No pleural effusion or pneumothorax.]IMPRESSION[No significant change.]Electronically signed by: Morris Duckworth (May 19, 2020 06:16:06)
[2020-05-19] MEDS: TESSALON PERLES PO SCH ×3 (06:53→21:05)
[2020-05-19] MEDS: FLONASE NASAL SPRAY ENOSTRIL SCH (08:27)
[2020-05-19] MEDS: LEVAQUIN PREMIX IV 500 MG 500 MG/100 ML BAG IV SCH (08:28)
[2020-05-19] MEDS: MAXZIDE 37.5/25 MG PO SCH (08:28)
[2020-05-19] MEDS: LOVENOX INJ 40 MG SYR SC SCH (08:29)
[2020-05-19] MEDS: MICRO K EXTEN CAP 10 MEQ PO SCH ×2 (08:29→21:01)
[2020-05-19] MEDS: VSL#3 PO SCH (08:30)
[2020-05-19] MEDS: ROBITUSSIN DM PO SCH ×4 (08:30→21:02)
[2020-05-19] MEDS: SYNTHROID 137 mcg TAB PO SCH (08:30)
[2020-05-19] MEDS: SINGULAIR TAB 10 MG PO SCH (08:31)
[2020-05-19] MEDS: ZINC SULFATE PO SCH (08:31)
[2020-05-19] MEDS: PULMICORT NEB TX 0.5 MG NEB SCH ×2 (09:15→21:00)
[2020-05-19] MEDS: PEPCID TAB 20 MG PO SCH ×2 (10:27→21:02)
[2020-05-19] MEDS: LOPRESSOR TAB 50 MG PO SCH ×2 (10:27→21:00)
[2020-05-19] MEDS: REMDESIVIR (INVESTIGATIONAL DRUG GS-5734) 200 MG in NS 250 ML IV 250 ML IV SCH (10:27)
[2020-05-19 11:39] LABS: ABG BASE EXCESS 4.2 mmol/L (-2.0-2.0); ABG HCO3 27.3 mmol/L (22-26)
[2020-05-19] MEDS ORDERED: NYSTATIN SUSP ONE (12:11)
[2020-05-19] MEDS: NYSTATIN SUSP PO SCH ×3 (12:13→21:02)
[2020-05-19] MEDS: TUSSIONEX PENNKINETIC SUSP PO SCH (12:13)
[2020-05-19] MEDS: DIFLUCAN 200 MG IV PREMIX* 200 MG/100 ML BAG IV SCH (12:14)
[2020-05-19] MEDS: ALBUMIN HUMAN 25%- 100 ML 100 ML IV SCH (14:00)
[2020-05-19] MEDS: PROCALAMINE 3 % 1,000 ML IV SCH (14:00)
--- NOTE | 2020-05-19 14:46 | CT ---
HISTORYR/O PE, SOBSTUDYCTA CHESTCOMPARISON[Chest radiograph from same day]TECHNIQUEMultiple axial images of the chest were obtained from the thoracic inlet to the upper abdomen [after] the administration of IV contrast. Dose reduction techniques including Automated Exposure Control (AEC) and adjustment of mA and kV were utilized. CTA protocol utilizedFINDINGSThe thyroid gland appears atrophic. The thoracic aorta is normal in caliber with mild scattered atherosclerotic disease. The pulmonary artery is normal in caliber centrally. No filling defect is identified to suggest pulmonary embolus. The heart is normal in size. Trace pericardial fluid. Visualized upper abdomen has a benign appearance. No pathologic adenopathy in the thorax. No acute osseous abnormality. The trachea and mainstem bronchi are patent. There is a crazy paving pattern to the lungs with multifocal ground-glass opacities. This has a upper lung and periphery distribution preference. Small bilateral pleural effusions are present. No pneumothorax.IMPRESSION[Multifocal bilateral ground-glass opacities with a peripheral an upper lobe predominance consistent with COVID-19 pneumonia.] Small pleural effusions. Negative for pulmonary embolism.Electronically signed by: Morris Duckworth (May 19, 2020 14:44:59)
[2020-05-19] MEDS: LIPITOR TAB 10 MG PO SCH (20:59)
[2020-05-19] MEDS: KLONOPIN TAB 1 MG PO SCH (22:34)
[2020-05-20] MEDS: XOPENEX 1.25 MG/3 ML NEBULE NEB SCH ×4 (00:05→16:55)
[2020-05-20] MEDS: TUSSIONEX PENNKINETIC SUSP PO SCH ×2 (03:06→13:00)
[2020-05-20 04:49] LABS: ABG BASE EXCESS 7.4 mmol/L (-2.0-2.0)
[2020-05-20 04:52] LABS: ABG HCO3 31.2 mmol/L (22-26)
[2020-05-20 04:53] LABS: ABG ALLEN TEST POSS
[2020-05-20 05:33] LABS: BASOPHILS % (AUTO) 0.1 % (0.2-1.0); HEMATOCRIT 35.7 % (36.0-47.0); HEMOGLOBIN 12.2 g/dL (12.0-16.0); LYMPHOCYTES # (AUTO) 0.7 X10^3/uL (1.3-2.9); LYMPHOCYTES % (AUTO) 7.8 % (21.0-51.0); MEAN CORPUSCULAR HEMOGLOBIN 30.5 pg (27.0-34.0); MEAN CORPUSCULAR HGB CONC 34.1 g/dL (33.0-35.0); MEAN CORPUSCULAR VOLUME 89.2 fL (80.0-100.0); MEAN PLATELET VOLUME 8.7 fL (7.4-11.0); MONOCYTES # (AUTO) 0.4 x10^3/uL (0.3-0.8); MONOCYTES % (AUTO) 4.2 % (0.0-13.0); NEUTROPHILS # (AUTO) 7.9 x10^3/uL (2.2-4.8); NEUTROPHILS % (AUTO) 87.9 % (42.0-75.0); PLATELET COUNT 163 X10^3/uL (150.0-450.0); RED BLOOD COUNT 4.01 X10^6/uL (3.5-5.4); RED CELL DISTRIBUTION WIDTH 14.5 % (11.6-16.5)
[2020-05-20] MEDS: TESSALON PERLES PO SCH ×3 (05:34→21:00)
[2020-05-20] MEDS: SOLU-Medrol 125 MG VIAL IVP SCH (05:35)
[2020-05-20 06:00] LABS: ALANINE AMINOTRANSFERASE 32 Units/L (12-78); ALBUMIN 3.1 g/dL (3.4-5.0); ALKALINE PHOSPHATASE 49 Units/L (46-116); ASPARTATE AMINO TRANSFERASE 34 Units/L (15-37); BLOOD UREA NITROGEN 15 mg/dL (7-18); CALCIUM 8.4 mg/dL (8.5-10.1); CARBON DIOXIDE 28.9 mmol/L (21-32); CHLORIDE 103 mmol/L (98-107); COR CA(FOR HYPOALB) 9.1 mg/dL (8.5-10.1); COR NA(FOR HYPERGLY) 142 mmol/L (136-145); CREATININE 0.97 mg/dL (0.55-1.02); SODIUM 140 mmol/L (136-145); TOTAL PROTEIN 6.1 g/dL (6.4-8.2); eGFR NON BLACK RACES > 60 (>60)
--- NOTE | 2020-05-20 06:28 | RAD ---
HISTORYSOBSTUDYCHEST, 1 [id number]/2020FINDINGSThe trachea is midline. Left Port-A-Cath unchanged. The cardiac silhouette is unremarkable. Bilateral multifocal airspace disease mildly increased from prior study. No pneumothorax. The bony thorax is unremarkable.IMPRESSIONBilateral multifocal airspace disease mildly increased from previous 05/19/2020.Electronically signed by: Vin Velazquez (May 20, 2020 06:27:18)
[2020-05-20] MEDS: PULMICORT NEB TX 0.5 MG NEB SCH ×2 (08:20→20:15)
[2020-05-20] MEDS ORDERED: KLONOPIN TAB 1 MG ONE (09:16)
[2020-05-20] MEDS ORDERED: HALDOL INJ IVP PRN (09:48)
[2020-05-20] MEDS ORDERED: KLONOPIN TAB 1 MG PO ONE (09:48)
[2020-05-20] MEDS: LEVAQUIN PREMIX IV 500 MG 500 MG/100 ML BAG IV SCH (09:55)
[2020-05-20] MEDS: REMDESIVIR (INVESTIGATIONAL DRUG GS-5734) 200 MG in NS 250 ML IV 250 ML IV SCH (11:15)
--- NOTE | 2020-05-20 11:26 | PCM.PROG ---
Progress Note - Progress Note for Day of Date of Exam: 05/19/20 - Subjective Subjective: IS BEING TREATED FOR PNEUMONIA DUE TO COVID-19, PNEUMONIA, AND HYPOXIA. TODAY, SHE IS ALERT AND ORIENTED, LYING IN BED ON MORNING ROUNDS. SHE CONTINUES WITH SHORTNESS OF BREATH, WEAKNESS, AND COUGH TODAY. SHE REPORTS INCREASE IN SHORTNESS OF BREATH TODAY. SHE IS UTILIZING NASAL CANNULA AT 3 LPM. ON EXAMINATION, HEART IS NOTED TO BE TACHYCARDIC WITH HR 100- 120BPM. BILATERAL LUNGS ARE NOTED WITH SCATTERED WHEEZING AND RHONCHI THROUGHOUT. ABDOMEN IS ROUND, SOFT, AND NON-TENDER WITH NORMAL BOWEL SOUNDS NOTED IN ALL QUADRANTS. HER VITALS THIS MORNING ARE: 97.8-114-30-95%NC-127/67. LABS WERE OBTAINED. ABNORMAL LAB VALUES INCLUDE THE FOLLOWING: WBC 11.0, GLUCOSE 256, CALCIUM 8.2, FERRITIN 368, CRP 53.70, TOTAL PROTEIN 5.9, ALBUMIN 2.6. AN ABG WAS REPEATED THIS MORNING AND REVEALED: PH 7.500, PC02 35.0, P02 55.0, HC03 27.3, 02 SATURATION 91.0, BASE EXCESS 4.2, FI02 32.0. BLOOD AND SPUTUM CULTURES ARE PENDING. A CHEST XRAY WAS OBTAINED AND REVEALED: Left chest wall port with tip in stable position. Cardiac and mediastinal contours appear normal. Stable bilateral multifocal airspace disease. No pleural effusion or pneumothorax. SHE IS CURRENTLY RECEIVING 1/2NS AT 75 ML/HR, PROCALAMINE 40% IV AT 40ML/HR AND ALBUMIN 25% IV DAILY, REMDESIVIR 100MG IV DAILY, SOLU-MEDROL 125MG IV Q8H, LEVAQUIN 500MG IV DAILY, PULMICORT NEBS BID, XOPENEX NEBS Q6H, LOVENOX 40MG SC DAILY, TUSSIONEX 5ML PO Q12H, ROBITUSSIN DM 10ML PO QID, TESSALON PERLES 200MG PO TID, THE POTASSIUM AND MAGNESIUM PROTOCOLS, AND HER HOME MEDICATIONS WERE RESUMED. WE WILL CONTINUE WITH CURRENT PLAN OF CARE TODAY AND ADD DIFLUCAN 200MG IV DAILY. OTHERWISE, WE PLAN TO FOLLOW UP WITH AM LABS AND CHEST XRAY AND CONTINUE TO MONITOR. - Past Medical Family Social History Past Med/Fam/Surg Hx: No changes since H&P Allergies: Allergies indomethacin [From Indocin] Adverse Reaction (Verified 05/16/20 13:43) - Review of Systems ROS: No change since H&P - Vital Signs and I&O's Vital Signs: Temperature 97.7 F Pulse Rate 59 Respiratory Rate 20 Blood Pressure 138/76 O2 Sat by Pulse Oximetry 90 Intake and Output: Intake & Output 05/17/20 05/18/20 05/19/20 05/20/20 11:59 11:59 11:59 11:59 Intake Total 2620 / 2620 2793 / 2793 3569 / 3569 3409 / 3409 Balance 2620 / 2620 2793 / 2793 3569 / 3569 3409 / 3409 - Physical Exam Oriented: Normal Eyes: Normal Ear: Normal Nose: Normal Throat: Normal Respiratory: Generalized, Diminished Cardiovascular: Normal : Normal Auscultation: Bowel Sounds: Normal Palpation: Normal Tenderness: Normal Skin: Normal Musculoskeletal: Normal Psychiatric: Normal Mood Description: Calm Affect: Normal Speech Pattern: Clear, Appropriate - Laboratory and Diagnostics Result Diagrams: 05/20/20 04:48 05/20/20 04:48 Labs: 05/17/20 09:38 Sputum - Expectorated Sputum Sputum Culture - Final 05/17/20 09:38 Sputum - Expectorated Sputum - Final 05/16/20 12:10 Blood Blood Culture - Preliminary 05/16/20 12:00 Blood Blood Culture - Preliminary Laboratory WBC 9.0 X10^3/uL (3.6-10.0) 05/20/20 04:48 RBC 4.01 X10^6/uL (3.5-5.4) 05/20/20 04:48 Hgb 12.2 g/dL (12.0-16.0) 05/20/20 04:48 Hct 35.7 % (36.0-47.0) L 05/20/20 04:48 MCV 89.2 fL (80.0-100.0) 05/20/20 04:48 MCH 30.5 pg (27.0-34.0) 05/20/20 04:48 MCHC 34.1 g/dL (33.0-35.0) 05/20/20 04:48 RDW 14.5 % (11.6-16.5) 05/20/20 04:48 Plt Count 163 X10^3/uL (150.0-450.0) 05/20/20 04:48 MPV 8.7 fL (7.4-11.0) 05/20/20 04:48 Neut % (Auto) 87.9 % (42.0-75.0) H 05/20/20 04:48 Lymph % (Auto) 7.8 % (21.0-51.0) L 05/20/20 04:48 [place] % (Auto) 4.2 % (0.0-13.0) 05/20/20 04:48 Eos % (Auto) 0.0 % (0.9-2.9) L 05/20/20 04:48 Baso % (Auto) 0.1 % (0.2-1.0) L 05/20/20 04:48 Neut # (Auto) 7.9 x10^3/uL (2.2-4.8) H 05/20/20 04:48 Lymph # (Auto) 0.7 X10^3/uL (1.3-2.9) L 05/20/20 04:48 [place] # (Auto) 0.4 x10^3/uL (0.3-0.8) 05/20/20 04:48 Eos # (Auto) 0.0 x10^3/uL (0.0-0.2) 05/20/20 04:48 Baso # (Auto) 0.0 X10^3/uL (0.0-0.1) 05/20/20 04:48 Absolute Nucleated RBC 0.0 /100WBC 05/20/20 04:48 Sample Site L brach 05/20/20 04:40 ABG pH 7.500 (7.35-7.45) H 05/20/20 04:40 ABG pCO2 40.0 mmHg (35.0-45.0) 05/20/20 04:40 ABG pO2 48.0 mmHg (80.0-100.0) L* 05/20/20 04:40 ABG HCO3 31.2 mmol/L (22-26) H* 05/20/20 04:40 ABG O2 Saturation 87.0 % (90-100) L 05/20/20 04:40 ABG Base Excess 7.4 mmol/L (-2.0-2.0) H 05/20/20 04:40 Juan Test Poss 05/20/20 04:40 A-a Gradient 187.0 mmHg 05/20/20 04:40 FiO2 40.0 05/20/20 04:40 Blood Gas Comments Rola well ae 05/20/20 04:40 Sodium 140 mmol/L (136-145) 05/20/20 04:48 Corrected Sodium 142 mmol/L (136-145) 05/20/20 04:48 Potassium 3.6 mmol/L (3.5-5.1) 05/20/20 04:48 Chloride 103 mmol/L (98-107) 05/20/20 04:48 Carbon Dioxide 28.9 mmol/L (21-32) 05/20/20 04:48 BUN 15 mg/dL (7-18) 05/20/20 04:48 Creatinine 0.97 mg/dL (0.55-1.02) 05/20/20 04:48 Est GFR (MDRD) Af Amer > 60 (>60) 05/20/20 04:48 Est GFR (MDRD) Non-Af > 60 (>60) 05/20/20 04:48 Glucose 188 mg/dL (65-99) H 05/20/20 04:48 Calcium 8.4 mg/dL (8.5-10.1) L 05/20/20 04:48 Corrected Calcium 9.1 mg/dL (8.5-10.1) 05/20/20 04:48 Magnesium 2.2 mg/dL (1.7-2.9) 05/17/20 04:31 Ferritin 317 ng/mL (8-252) H 05/20/20 04:48 Total Bilirubin 0.50 mg/dL (0.2-1.0) 05/20/20 04:48 AST 34 Units/L (15-37) 05/20/20 04:48 ALT 32 Units/L (12-78) 05/20/20 04:48 Alkaline Phosphatase 49 Units/L (46-116) 05/20/20 04:48 C-Reactive Protein 30.40 mg/L (0-3.0) H 05/20/20 04:48 Total Protein 6.1 g/dL (6.4-8.2) L 05/20/20 04:48 Albumin 3.1 g/dL (3.4-5.0) L 05/20/20 04:48 Globulin 3.0 g/dL (2.5-4.5) 05/20/20 04:48 Albumin/Globulin Ratio 1.0 Ratio (1.1-2.1) L 05/20/20 04:48 Blood Type O POSITIVE 05/20/20 09:20 - Plan (1) Pneumonia due to COVID-19 virus Status: Acute Plan: 1/2NS AT 75 ML/HR, PROCAL AT 40 ML/HR, ALBUMIN 25% IV DAILY, REMDESIVIR 100MG IV DAILY, SOLU-MEDROL 125MG IV Q8H, LEVAQUIN 500MG IV DIALY, PULMICORT NEBS BID, XOPENEX NEBS Q6H, LOVENOX 40MG SC DAILY, TUSSIONEX 5ML PO Q12H, ROBITUSSIN DM 0ML PO QID, TESSALON PERLES 200MG PO TID, THE POTASSIUM AND MAGNESIUM PROTOCOLS, AND HER HOME MEDICATIONS WERE RESUMED. (2) Hypoxia Status: Acute (3) Hypokalemia Status: Acute (4) Melanoma Status: Chronic Qualifiers: Melanoma location: unspecified site Qualified Code(s): C43.9 - Malignant melanoma of skin, unspecified
[2020-05-20] MEDS: ZINC SULFATE PO SCH (12:27)
[2020-05-20] MEDS: LOVENOX INJ 40 MG SYR SC SCH (12:28)
[2020-05-20] MEDS: LOPRESSOR TAB 50 MG PO SCH (12:28)
[2020-05-20] MEDS: FLONASE NASAL SPRAY ENOSTRIL SCH (12:28)
[2020-05-20] MEDS: MICRO K EXTEN CAP 10 MEQ PO SCH ×2 (12:29→21:00)
[2020-05-20] MEDS: NYSTATIN SUSP PO SCH ×3 (12:30→21:00)
[2020-05-20] MEDS: PEPCID TAB 20 MG PO SCH ×2 (12:30→21:00)
[2020-05-20] MEDS: SINGULAIR TAB 10 MG PO SCH (12:31)
[2020-05-20] MEDS: ROBITUSSIN DM PO SCH ×3 (12:31→21:00)
[2020-05-20] MEDS: VSL#3 PO SCH (12:32)
[2020-05-20] MEDS: SYNTHROID 137 mcg TAB PO SCH (12:32)
[2020-05-20] MEDS: DIFLUCAN 200 MG IV PREMIX* 200 MG/100 ML BAG IV SCH (13:43)
[2020-05-20] MEDS: KLONOPIN TAB 1 MG PO SCH (21:00)
[2020-05-20] MEDS: ALBUMIN HUMAN 25%- 100 ML 100 ML IV SCH (21:00)
[2020-05-20] MEDS: LIPITOR TAB 10 MG PO SCH (21:00)
[2020-05-20] MEDS ORDERED: SOLU-Medrol 40 MG VIAL IVP SCH (22:00)
[2020-05-21] MEDS: XOPENEX 1.25 MG/3 ML NEBULE NEB SCH ×4 (00:16→17:10)
[2020-05-21] MEDS: MAXZIDE 37.5/25 MG PO SCH ×2 (00:47→09:15)
[2020-05-21] MEDS: ROBITUSSIN DM PO SCH ×5 (00:48→20:47)
[2020-05-21] MEDS: NYSTATIN SUSP PO SCH ×5 (00:48→21:47)
[2020-05-21] MEDS: NS 1/2 1000 ML IV 1,000 ML IV SCH ×4 (00:48→20:01)
[2020-05-21] MEDS: LOPRESSOR TAB 50 MG PO SCH ×3 (00:52→20:46)
[2020-05-21] MEDS: LIPITOR TAB 10 MG PO SCH ×2 (00:53→20:46)
[2020-05-21] MEDS: TUSSIONEX PENNKINETIC SUSP PO SCH ×3 (00:56→23:52)
[2020-05-21] MEDS ORDERED: NS 1/2 1000 ML IV 1,000 ML IV ONE (01:55)
[2020-05-21 05:28] LABS: BASOPHILS % (AUTO) 0.1 % (0.2-1.0); HEMATOCRIT 31.9 % (36.0-47.0); HEMOGLOBIN 10.8 g/dL (12.0-16.0); LYMPHOCYTES # (AUTO) 0.9 X10^3/uL (1.3-2.9); LYMPHOCYTES % (AUTO) 12.7 % (21.0-51.0); MEAN CORPUSCULAR HEMOGLOBIN 30.2 pg (27.0-34.0); MEAN CORPUSCULAR HGB CONC 33.9 g/dL (33.0-35.0); MEAN CORPUSCULAR VOLUME 89.1 fL (80.0-100.0); MEAN PLATELET VOLUME 8.2 fL (7.4-11.0); MONOCYTES # (AUTO) 0.4 x10^3/uL (0.3-0.8); MONOCYTES % (AUTO) 6.6 % (0.0-13.0); NEUTROPHILS # (AUTO) 5.4 x10^3/uL (2.2-4.8); NEUTROPHILS % (AUTO) 80.6 % (42.0-75.0); PLATELET COUNT 164 X10^3/uL (150.0-450.0); RED BLOOD COUNT 3.58 X10^6/uL (3.5-5.4); RED CELL DISTRIBUTION WIDTH 14.3 % (11.6-16.5); WHITE BLOOD COUNT 6.7 X10^3/uL (3.6-10.0)
[2020-05-21 05:33] LABS: ABG BASE EXCESS 7.4 mmol/L (-2.0-2.0); ABG HCO3 31.2 mmol/L (22-26)
[2020-05-21] MEDS: TESSALON PERLES PO SCH ×3 (05:41→21:48)
[2020-05-21 05:51] LABS: ALANINE AMINOTRANSFERASE 34 Units/L (12-78); ALBUMIN 3.1 g/dL (3.4-5.0); ALKALINE PHOSPHATASE 43 Units/L (46-116); ASPARTATE AMINO TRANSFERASE 28 Units/L (15-37); BLOOD UREA NITROGEN 20 mg/dL (7-18); CALCIUM 7.9 mg/dL (8.5-10.1); CHLORIDE 106 mmol/L (98-107); COR CA(FOR HYPOALB) 8.6 mg/dL (8.5-10.1); COR NA(FOR HYPERGLY) 143 mmol/L (136-145); CREATININE 0.94 mg/dL (0.55-1.02); SODIUM 142 mmol/L (136-145); TOTAL PROTEIN 5.5 g/dL (6.4-8.2); eGFR NON BLACK RACES > 60 (>60)
--- NOTE | 2020-05-21 06:00 | RAD ---
HISTORYSOB, COVID-19+STUDYCHEST, 1 [id number]/2020FINDINGSThe trachea is midline. The cardiac silhouette is unremarkable. Bilateral multifocal airspace disease unchanged. No pneumothorax.. The bony thorax is unremarkable.IMPRESSIONBilateral multifocal airspace disease unchanged from 05/20/2020Electronically signed by: Vin Velazquez (May 21, 2020 06:00:02)
[2020-05-21] MEDS: FLONASE NASAL SPRAY ENOSTRIL SCH (09:13)
[2020-05-21] MEDS: ZINC SULFATE PO SCH (09:14)
[2020-05-21] MEDS: VSL#3 PO SCH (09:14)
[2020-05-21] MEDS: PULMICORT NEB TX 0.5 MG NEB SCH ×2 (09:15→21:10)
[2020-05-21] MEDS: SYNTHROID 137 mcg TAB PO SCH (09:15)
[2020-05-21] MEDS: SINGULAIR TAB 10 MG PO SCH (09:15)
[2020-05-21] MEDS: PEPCID TAB 20 MG PO SCH ×2 (09:15→20:47)
[2020-05-21] MEDS: MICRO K EXTEN CAP 10 MEQ PO SCH ×2 (09:16→20:46)
[2020-05-21] MEDS: LOVENOX INJ 40 MG SYR SC SCH (09:30)
[2020-05-21] MEDS: DIFLUCAN 200 MG IV PREMIX* 200 MG/100 ML BAG IV SCH (10:00)
--- NOTE | 2020-05-21 10:23 | PCM.PROG ---
Progress Note - Progress Note for Day of Date of Exam: 05/20/20 - Subjective Subjective: IS BEING TREATED FOR PNEUMONIA DUE TO COVID-19, PNEUMONIA, AND HYPOXIA. TODAY, SHE IS ALERT, SITTING UP IN BED ON MORNING ROUNDS. SHE CONTINUES WITH SHORTNESS OF BREATH, WEAKNESS, AND COUGH TODAY. STAFF REPORTS THAT SHE HAS BEEN DISORIENTED AND AGITATED. SHE WAS FOUND WALKING DOWN THE HALLWAY WITH HER BREAKFAST TRAY. PATIENT WAS SAYING THAT SHE HAD TO GO HOME AND THAT SHE DIDNT KNOW WHERE SHE WAS OR WHAT WE WERE DOING TO HER. SHE PULLED OUT IV LINES AND WOULD NOT LEAVE BLOOD PRESSURE CUFF ON. ON EXAMINATION, HEART IS NOTED TO BE TACHYCARDIC WITH HR 100-130s BPM. BILATERAL LUNGS CONTINUE WITH SCATTERED WHEEZING AND RHONCHI THROUGHOUT. ABDOMEN IS ROUND, SOFT, AND NON-TEN MAN[place] WITH NORMAL BOWEL SOUNDS NOTED IN ALL QUADRANTS. HER VITALS THIS MORNING ARE: 98.9-080-29-80RA-94/63. LABS WERE OBTAINED. ABNORMAL LAB VALUES INCLUDE THE FOLLOWING: HCT 35.7, GLUCOSE 188, CALCIUM 8.4, FERRITIN 317, CRP 30.40, TOTAL PROTEIN 6.1, ALBUMIN 3.1. AN ABG WAS REPEATED THIS MORNING AND REVEALED: PH 7.500, PC02 40.0, P02 48.0, HC3 31.2, HC03 87.0, BASE EXCESS 7.4, FI02 40.0. BLOOD AND SPUTUM CULTURES ARE PENDING. A CHEST XRAY WAS OBTAINED AND REVEALED: Bilateral multifocal airspace disease mildly increased from previous 05/19/2020. SHE IS CURRENTLY RECEIVING 1/2NS AT 75 ML/HR, PROCALAMINE 40% IV AT 40ML/HR AND ALBUMIN 25% IV DAILY, REMDESIVIR 100MG IV DAILY, SOLU-MEDROL 125MG IV Q8H, LEVAQUIN 500MG IV DAILY, PULMICORT NEBS BID, XOPENEX NEBS Q6H, LOVENOX 40MG SC DAILY, DIFLUCAN 200MG IV DAILY, TUSSIONEX 5ML PO Q12H, ROBITUSSIN DM 10ML PO QID, TESSALON PERLES 200MG PO TID, THE POTASSIUM AND MAGNESIUM PROTOCOLS, AND HER HOME MEDICATIONS WERE RESUMED. TODAY, WE WILL HOLD THE SOLU-MEDROL DUE TO SUSPECTED STEROID PSYCHOSIS. WE WILL ADMINISTER AN ADDITIONAL DOSE OF KLONOPIN THIS MORNING. OTHERWISE, WE PLAN TO FOLLOW UP WITH AM LABS, ABG, AND CHEST XRAY AND CONTINUE TO MONITOR. - Past Medical Family Social History Past Med/Fam/Surg Hx: No changes since H&P Allergies: Allergies indomethacin [From Indocin] Adverse Reaction (Verified 05/16/20 13:43) - Review of Systems ROS: No change since H&P - Vital Signs and I&O's Vital Signs: Temperature 98.7 F Pulse Rate 64 Respiratory Rate 18 Blood Pressure 136/70 O2 Sat by Pulse Oximetry 95 Intake and Output: Intake & Output 05/18/20 05/19/20 05/20/20 05/21/20 11:59 11:59 11:59 11:59 Intake Total 2793 / 2793 3569 / 3569 3409 / 3409 2429 / 2429 Balance 2793 / 2793 3569 / 3569 3409 / 3409 2429 / 2429 - Physical Exam Oriented: Normal Eyes: Normal Ear: Normal Nose: Normal Throat: Normal Respiratory: Generalized, Diminished Cardiovascular: Tachycardia : Normal Auscultation: Bowel Sounds: Normal Palpation: Normal Tenderness: Normal Skin: Normal Musculoskeletal: Normal Psychiatric: Normal Mood Description: Calm Affect: Normal Speech Pattern: Clear, Appropriate - Laboratory and Diagnostics Result Diagrams: 05/21/20 04:23 05/21/20 04:23 Labs: 05/17/20 09:38 Sputum - Expectorated Sputum Sputum Culture - Final 05/17/20 09:38 Sputum - Expectorated Sputum - Final 05/16/20 12:10 Blood Blood Culture - Preliminary 05/16/20 12:00 Blood Blood Culture - Preliminary Laboratory WBC 6.7 X10^3/uL (3.6-10.0) 05/21/20 04:23 RBC 3.58 X10^6/uL (3.5-5.4) 05/21/20 04:23 Hgb 10.8 g/dL (12.0-16.0) L 05/21/20 04:23 Hct 31.9 % (36.0-47.0) L 05/21/20 04:23 MCV 89.1 fL (80.0-100.0) 05/21/20 04:23 MCH 30.2 pg (27.0-34.0) 05/21/20 04:23 MCHC 33.9 g/dL (33.0-35.0) 05/21/20 04:23 RDW 14.3 % (11.6-16.5) 05/21/20 04:23 Plt Count 164 X10^3/uL (150.0-450.0) 05/21/20 04:23 MPV 8.2 fL (7.4-11.0) 05/21/20 04:23 Neut % (Auto) 80.6 % (42.0-75.0) H 05/21/20 04:23 Lymph % (Auto) 12.7 % (21.0-51.0) L 05/21/20 04:23 [place] % (Auto) 6.6 % (0.0-13.0) 05/21/20 04:23 Eos % (Auto) 0.0 % (0.9-2.9) L 05/21/20 04:23 Baso % (Auto) 0.1 % (0.2-1.0) L 05/21/20 04:23 Neut # (Auto) 5.4 x10^3/uL (2.2-4.8) H 05/21/20 04:23 Lymph # (Auto) 0.9 X10^3/uL (1.3-2.9) L 05/21/20 04:23 [place] # (Auto) 0.4 x10^3/uL (0.3-0.8) 05/21/20 04:23 Eos # (Auto) 0.0 x10^3/uL (0.0-0.2) 05/21/20 04:23 Baso # (Auto) 0.0 X10^3/uL (0.0-0.1) 05/21/20 04:23 Absolute Nucleated RBC 0.1 /100WBC 05/21/20 04:23 Sample Site Lb 05/21/20 05:30 ABG pH 7.500 (7.35-7.45) H 05/21/20 05:30 ABG pCO2 40.0 mmHg (35.0-45.0) 05/21/20 05:30 ABG pO2 80.0 mmHg (80.0-100.0) 05/21/20 05:30 ABG HCO3 31.2 mmol/L (22-26) H* 05/21/20 05:30 ABG O2 Saturation 97.0 % (90-100) 05/21/20 05:30 ABG Base Excess 7.4 mmol/L (-2.0-2.0) H 05/21/20 05:30 Juan Test N/a 05/21/20 05:30 A-a Gradient 298.0 mmHg 05/21/20 05:30 FiO2 60.0 05/21/20 05:30 Blood Gas Comments Rola well ae 05/21/20 05:30 Sodium 142 mmol/L (136-145) 05/21/20 04:23 Corrected Sodium 143 mmol/L (136-145) 05/21/20 04:23 Potassium 3.5 mmol/L (3.5-5.1) 05/21/20 04:23 Chloride 106 mmol/L (98-107) 05/21/20 04:23 Carbon Dioxide 28.0 mmol/L (21-32) 05/21/20 04:23 BUN 20 mg/dL (7-18) H 05/21/20 04:23 Creatinine 0.94 mg/dL (0.55-1.02) 05/21/20 04:23 Est GFR (MDRD) Af Amer > 60 (>60) 05/21/20 04:23 Est GFR (MDRD) Non-Af > 60 (>60) 05/21/20 04:23 Glucose 141 mg/dL (65-99) H 05/21/20 04:23 Calcium 7.9 mg/dL (8.5-10.1) L 05/21/20 04:23 Corrected Calcium 8.6 mg/dL (8.5-10.1) 05/21/20 04:23 Magnesium 2.2 mg/dL (1.7-2.9) 05/17/20 04:31 Ferritin 241 ng/mL (8-252) 05/21/20 04:23 Total Bilirubin 0.40 mg/dL (0.2-1.0) 05/21/20 04:23 AST 28 Units/L (15-37) 05/21/20 04:23 ALT 34 Units/L (12-78) 05/21/20 04:23 Alkaline Phosphatase 43 Units/L (46-116) L 05/21/20 04:23 C-Reactive Protein 15.60 mg/L (0-3.0) H 05/21/20 04:23 Total Protein 5.5 g/dL (6.4-8.2) L 05/21/20 04:23 Albumin 3.1 g/dL (3.4-5.0) L 05/21/20 04:23 Globulin 2.4 g/dL (2.5-4.5) L 05/21/20 04:23 Albumin/Globulin Ratio 1.3 Ratio (1.1-2.1) 05/21/20 04:23 Blood Type O POSITIVE 05/20/20 09:20 - Plan (1) Pneumonia due to COVID-19 virus Status: Acute Plan: 1/2NS AT 75 ML/HR, PROCAL AT 40 ML/HR, ALBUMIN 25% IV DAILY, REMDESIVIR 100MG IV DAILY, LEVAQUIN 500MG IV DIALY, PULMICORT NEBS BID, XOPENEX NEBS Q6H, LOVENOX 40MG SC DAILY, TUSSIONEX 5ML PO Q12H, ROBITUSSIN DM 10ML PO QID, TESSALON PERLES 200MG PO TID, THE POTASSIUM AND MAGNESIUM PROTOCOLS, AND HER HOME MEDICATIONS WERE RESUMED. (2) Hypoxia Status: Acute (3) Hypokalemia Status: Acute (4) Steroid-induced psychosis Status: Acute Plan: HOLD STEROIDS, KLONOPIN 1MG PO BID (5) Melanoma Status: Chronic Qualifiers: Melanoma location: unspecified site Qualified Code(s): C43.9 - Malignant melanoma of skin, unspecified
[2020-05-21] MEDS: LEVAQUIN PREMIX IV 500 MG 500 MG/100 ML BAG IV SCH (11:00)
[2020-05-21] MEDS: REMDESIVIR (INVESTIGATIONAL DRUG GS-5734) 100 MG in NS 250 ML IV 250 ML IV SCH (14:00)
[2020-05-21] MEDS ORDERED: SOLU-Medrol 40 MG VIAL IVP SCH (14:00)
[2020-05-21] MEDS ORDERED: AYR NASAL DROPS PRN (14:18)
[2020-05-21] MEDS ORDERED: NS 250 ML IV 250 ML IV ONE (16:54)
[2020-05-21] MEDS: ALBUMIN HUMAN 25%- 100 ML 100 ML IV SCH (20:42)
[2020-05-21] MEDS: KLONOPIN TAB 1 MG PO SCH (20:45)
[2020-05-22] MEDS: XOPENEX 1.25 MG/3 ML NEBULE NEB SCH ×3 (00:30→12:25)
[2020-05-22 05:36] LABS: BASOPHILS % (AUTO) 0.1 % (0.2-1.0); EOSINOPHILS % (AUTO) 0.2 % (0.9-2.9); HEMATOCRIT 34.6 % (36.0-47.0); HEMOGLOBIN 11.8 g/dL (12.0-16.0); LYMPHOCYTES # (AUTO) 1.4 X10^3/uL (1.3-2.9); LYMPHOCYTES % (AUTO) 17.2 % (21.0-51.0); MEAN CORPUSCULAR HEMOGLOBIN 30.2 pg (27.0-34.0); MEAN CORPUSCULAR VOLUME 88.7 fL (80.0-100.0); MONOCYTES # (AUTO) 0.5 x10^3/uL (0.3-0.8); MONOCYTES % (AUTO) 6.3 % (0.0-13.0); NEUTROPHILS # (AUTO) 6.1 x10^3/uL (2.2-4.8); NEUTROPHILS % (AUTO) 76.2 % (42.0-75.0); PLATELET COUNT 168 X10^3/uL (150.0-450.0); RED CELL DISTRIBUTION WIDTH 14.2 % (11.6-16.5); WHITE BLOOD COUNT 8.1 X10^3/uL (3.6-10.0)
[2020-05-22] MEDS: TESSALON PERLES PO SCH ×3 (05:50→21:56)
--- NOTE | 2020-05-22 05:52 | RAD ---
HISTORYSOBSTUDYPortable AP [id number] heart remains upper normal to slightly enlarged. Scattered patchy bilateral infiltrates are again noted with little interval change. There is no change in position of the left subclavian injection port. No developing pleural effusion or pneumothorax is seen.IMPRESSIONNo change in appearance of the chest since 1 day prior.Electronically signed by: DANELLE MEEKS (May 22, 2020 05:51:55)
[2020-05-22 06:01] LABS: ALANINE AMINOTRANSFERASE 32 Units/L (12-78); ALBUMIN 3.4 g/dL (3.4-5.0); ALKALINE PHOSPHATASE 57 Units/L (46-116); ASPARTATE AMINO TRANSFERASE 26 Units/L (15-37); BLOOD UREA NITROGEN 11 mg/dL (7-18); CALCIUM 8.2 mg/dL (8.5-10.1); CARBON DIOXIDE 29.4 mmol/L (21-32); CHLORIDE 102 mmol/L (98-107); CREATININE 0.85 mg/dL (0.55-1.02); SODIUM 139 mmol/L (136-145); eGFR NON BLACK RACES > 60 (>60)
[2020-05-22 06:22] LABS: ABG ALLEN TEST POS; ABG BASE EXCESS 9.3 mmol/L (-2.0-2.0); ABG HCO3 32.5 mmol/L (22-26); FRACTIONATED INSPIRED OXYGEN 40
[2020-05-22] MEDS: NS 1/2 1000 ML IV 1,000 ML IV SCH ×3 (08:14→21:56)
[2020-05-22] MEDS: PULMICORT NEB TX 0.5 MG NEB SCH ×2 (09:05→20:50)
[2020-05-22] MEDS: LOPRESSOR TAB 50 MG PO SCH ×2 (09:23→21:55)
[2020-05-22] MEDS: VSL#3 PO SCH (09:24)
[2020-05-22] MEDS: ZINC SULFATE PO SCH (09:24)
[2020-05-22] MEDS: ROBITUSSIN DM PO SCH ×4 (09:25→21:56)
[2020-05-22] MEDS: SINGULAIR TAB 10 MG PO SCH (09:25)
[2020-05-22] MEDS: PEPCID TAB 20 MG PO SCH ×2 (09:26→21:56)
[2020-05-22] MEDS: FLONASE NASAL SPRAY ENOSTRIL SCH (09:26)
[2020-05-22] MEDS: SYNTHROID 137 mcg TAB PO SCH (09:26)
[2020-05-22] MEDS: MAXZIDE 37.5/25 MG PO SCH (09:27)
[2020-05-22] MEDS: MICRO K EXTEN CAP 10 MEQ PO SCH ×2 (09:27→21:55)
[2020-05-22] MEDS: LOVENOX INJ 40 MG SYR SC SCH (09:27)
[2020-05-22] MEDS: DIFLUCAN 200 MG IV PREMIX* 200 MG/100 ML BAG IV SCH (09:31)
[2020-05-22] MEDS ORDERED: SOLU-Medrol 40 MG VIAL ONE (10:34)
[2020-05-22] MEDS: SOLU-Medrol 40 MG VIAL IVP SCH ×3 (10:35→21:56)
[2020-05-22] MEDS: REMDESIVIR (INVESTIGATIONAL DRUG GS-5734) 100 MG in NS 250 ML IV 250 ML IV SCH (10:49)
[2020-05-22] MEDS: NYSTATIN SUSP PO SCH ×4 (11:14→21:56)
[2020-05-22] MEDS: LEVAQUIN PREMIX IV 500 MG 500 MG/100 ML BAG IV SCH (11:51)
[2020-05-22] MEDS: TUSSIONEX PENNKINETIC SUSP PO SCH ×2 (11:52→21:57)
[2020-05-22] MEDS: MUCOMYST 20% 200 MG/ML NEB SCH ×2 (12:25→17:20)
[2020-05-22] MEDS ORDERED: NS 1/2 1000 ML IV 1,000 ML IV ONE (20:09)
[2020-05-22] MEDS: ALBUMIN HUMAN 25%- 100 ML 100 ML IV SCH (21:54)
[2020-05-22] MEDS: LIPITOR TAB 10 MG PO SCH (21:55)
[2020-05-22] MEDS: KLONOPIN TAB 1 MG PO SCH (21:55)
[2020-05-22] MEDS: NORCO 5/325 MG TAB PO PRN (21:57)
[2020-05-23] MEDS: XOPENEX 1.25 MG/3 ML NEBULE NEB SCH ×4 (00:20→17:00)
[2020-05-23] MEDS: MUCOMYST 20% 200 MG/ML NEB SCH ×4 (00:20→17:00)
[2020-05-23] MEDS: MAGNESIUM SULFATE 1 GRAM/100 mL PREMIX 1 GM/100 ML BAG IV PRN ×2 (01:36→02:36)
[2020-05-23 05:19] LABS: ABG BASE EXCESS 7.4 mmol/L (-2.0-2.0)
[2020-05-23 05:20] LABS: ABG ALLEN TEST POS; ABG HCO3 31.2 mmol/L (22-26); FRACTIONATED INSPIRED OXYGEN 70
--- NOTE | 2020-05-23 06:07 | RAD ---
HISTORYSOBSTUDYCHEST, 1 [id number]/08/2020FINDINGSThe trachea is midline. The cardiac silhouette is enlarged with a tortuous thoracic aorta . A Port-A-Cath overlying the left chest is observed the tip in the SVC. Scattered interstitial lung changes throughout the right and left chest are observed. The bony thorax is unremarkable.IMPRESSIONScattered interstitial lung changes throughout the right and left chest are observed with improved aeration of the right left midlung zone.Electronically signed by: INA PATINO (May 23, 2020 06:06:47)
[2020-05-23 06:18] LABS: BASOPHILS % (AUTO) 0.1 % (0.2-1.0); HEMATOCRIT 36.3 % (36.0-47.0); HEMOGLOBIN 12.1 g/dL (12.0-16.0); LYMPHOCYTES # (AUTO) 0.4 X10^3/uL (1.3-2.9); LYMPHOCYTES % (AUTO) 7.6 % (21.0-51.0); MEAN CORPUSCULAR HGB CONC 33.4 g/dL (33.0-35.0); MEAN CORPUSCULAR VOLUME 89.9 fL (80.0-100.0); MEAN PLATELET VOLUME 8.4 fL (7.4-11.0); MONOCYTES # (AUTO) 0.2 x10^3/uL (0.3-0.8); MONOCYTES % (AUTO) 3.3 % (0.0-13.0); NEUTROPHILS # (AUTO) 4.2 x10^3/uL (2.2-4.8); PLATELET COUNT 144 X10^3/uL (150.0-450.0); RED BLOOD COUNT 4.04 X10^6/uL (3.5-5.4); RED CELL DISTRIBUTION WIDTH 14.1 % (11.6-16.5); WHITE BLOOD COUNT 4.7 X10^3/uL (3.6-10.0)
[2020-05-23] MEDS: TESSALON PERLES PO SCH ×3 (06:23→21:00)
[2020-05-23] MEDS: SOLU-Medrol 40 MG VIAL IVP SCH ×3 (06:23→21:00)
[2020-05-23 06:33] LABS: ALANINE AMINOTRANSFERASE 28 Units/L (12-78); ALBUMIN 3.7 g/dL (3.4-5.0); ALKALINE PHOSPHATASE 58 Units/L (46-116); ASPARTATE AMINO TRANSFERASE 15 Units/L (15-37); BLOOD UREA NITROGEN 16 mg/dL (7-18); CALCIUM 8.9 mg/dL (8.5-10.1); CARBON DIOXIDE 28.9 mmol/L (21-32); CHLORIDE 97 mmol/L (98-107); COR NA(FOR HYPERGLY) 139 mmol/L (136-145); CREATININE 0.98 mg/dL (0.55-1.02); SODIUM 133 mmol/L (136-145); TOTAL PROTEIN 6.5 g/dL (6.4-8.2); eGFR NON BLACK RACES > 60 (>60)
[2020-05-23] MEDS: DIFLUCAN 200 MG IV PREMIX* 200 MG/100 ML BAG IV SCH (08:28)
[2020-05-23] MEDS: NYSTATIN SUSP PO SCH ×4 (08:28→21:48)
[2020-05-23] MEDS: MAXZIDE 37.5/25 MG PO SCH (08:29)
[2020-05-23] MEDS: PEPCID TAB 20 MG PO SCH ×2 (08:29→21:00)
[2020-05-23] MEDS: SINGULAIR TAB 10 MG PO SCH (08:29)
[2020-05-23] MEDS: LOVENOX INJ 40 MG SYR SC SCH (08:30)
[2020-05-23] MEDS: LOPRESSOR TAB 50 MG PO SCH ×2 (08:30→21:47)
[2020-05-23] MEDS: VSL#3 PO SCH (08:30)
[2020-05-23] MEDS: FLONASE NASAL SPRAY ENOSTRIL SCH (08:31)
[2020-05-23] MEDS: MICRO K EXTEN CAP 10 MEQ PO SCH ×2 (08:32→21:47)
[2020-05-23] MEDS: ROBITUSSIN DM PO SCH ×4 (08:33→21:00)
[2020-05-23] MEDS: SYNTHROID 137 mcg TAB PO SCH (08:33)
[2020-05-23] MEDS: ZINC SULFATE PO SCH (08:34)
[2020-05-23] MEDS: PULMICORT NEB TX 0.5 MG NEB SCH ×2 (09:55→21:50)
[2020-05-23] MEDS: LEVAQUIN PREMIX IV 500 MG 500 MG/100 ML BAG IV SCH (10:25)
[2020-05-23] MEDS: TUSSIONEX PENNKINETIC SUSP PO SCH ×2 (10:28→21:50)
[2020-05-23] MEDS: REMDESIVIR (INVESTIGATIONAL DRUG GS-5734) 100 MG in NS 250 ML IV 250 ML IV SCH (11:19)
[2020-05-23] MEDS: NS 1/2 1000 ML IV 1,000 ML IV SCH (11:22)
--- NOTE | 2020-05-23 19:09 | PCM.PROG ---
Progress Note - Progress Note for Day of Date of Exam: 05/21/20 - Subjective Subjective: IS BEING TREATED FOR PNEUMONIA DUE TO COVID-19, PNEUMONIA, AND HYPOXIA. SHE HAS ALSO EXPERIENCED SOME STEROID INDUCED PSYCHOSIS. TODAY, SHE IS ALERT AND ORIENTED, SITTING UP IN BED ON MORNING ROUNDS. SHE CONTINUES WITH SHORTNESS OF BREATH, WEAKNESS, AND COUGH TODAY. ON EXAMINATION, HEART IS NOTED TO BE TACHYCARDIC WITH HR 100-130s BPM. BILATERAL LUNGS CONTINUE WITH SCATTERED WHEEZING AND RHONCHI THROUGHOUT. ABDOMEN IS ROUND, SOFT, AND NON- TENDER WITH NORMAL BOWEL SOUNDS NOTED IN ALL QUADRANTS. HER VITALS THIS MORNING ARE: 98.3-91-20-96%NC-113/60. LABS WERE OBTAINED. ABNORMAL LAB VALUES INCLUDE THE FOLLOWING: HGB 10.8, HCT 31.9, BUN 20, GLUCOSE 141, CALCIUM 7.9, ALK PHOS 43, CRP 15.60, TOTAL PROTEIN 6.0. AN ABG WAS REPEATED THIS MORNING AND REVEALED: PH 7.500, PC02 40.0, P02 80.0, HC03 31.2, 02 SATURATION 97.0, BASE EXCESS 7.4, FI02 60.0. BLOOD AND SPUTUM CULTURES ARE PENDING. A CHEST XRAY WAS OBTAINED AND REVEALED: Bilateral multifocal airspace disease unchanged from 05/20/2020SHE IS CURRENTLY RECEIVING 1/2NS AT 75 ML/HR, PROCALAMINE 40% IV AT 40ML/HR AND ALBUMIN 25% IV DAILY, REMDESIVIR 100MG IV DAILY, LEVAQUIN 500MG IV DAILY, PULMICORT NEBS BID, XOPENEX NEBS Q6H, LOVENOX 40MG SC DAILY, DIFLUCAN 200MG IV DAILY, TUSSIONEX 5ML PO Q12H, ROBITUSSIN DM 10ML PO QID, TESSALON PERLES 200MG PO TID, THE POTASSIUM AND MAGNESIUM PROTOCOLS, AND HER HOME MEDICATIONS WERE RESUMED. TODAY, WE WILL RESTART SOLU-MEDROL 20MG IV Q8H. OTHERWISE, WE PLAN TO FOLLOW UP WITH AM LABS, ABG, AND CHEST XRAY AND CONTINUE TO MONITOR. - Past Medical Family Social History Past Med/Fam/Surg Hx: No changes since H&P Allergies: Allergies indomethacin [From Indocin] Adverse Reaction (Verified 05/16/20 13:43) - Review of Systems ROS: No change since H&P - Vital Signs and I&O's Vital Signs: Temperature 98.9 F Pulse Rate 76 Respiratory Rate 20 Blood Pressure 131/70 O2 Sat by Pulse Oximetry 93 Intake and Output: Intake & Output 05/21/20 05/22/20 05/23/20 05/24/20 11:59 11:59 11:59 11:59 Intake Total 2429 / 2429 2514 / 2514 2642 / 2642 1285 / 1285 Output Total 900 / 900 3400 / 3400 Balance 2429 / 2429 1614 / 1614 -758 / -758 1285 / 1285 - Physical Exam Oriented: Normal Eyes: Normal Ear: Normal Nose: Normal Throat: Normal Respiratory: Generalized, Diminished Cardiovascular: Tachycardia : Normal Auscultation: Bowel Sounds: Normal Palpation: Normal Tenderness: Normal Skin: Normal Musculoskeletal: Normal Psychiatric: Normal Mood Description: Calm Affect: Normal Speech Pattern: Clear, Appropriate - Laboratory and Diagnostics Result Diagrams: 05/23/20 04:35 05/23/20 04:35 Labs: 05/16/20 12:10 Blood Blood Culture - Final 05/16/20 12:00 Blood Blood Culture - Final 05/17/20 09:38 Sputum - Expectorated Sputum Sputum Culture - Final 05/17/20 09:38 Sputum - Expectorated Sputum - Final Laboratory WBC 4.7 X10^3/uL (3.6-10.0) 05/23/20 04:35 RBC 4.04 X10^6/uL (3.5-5.4) 05/23/20 04:35 Hgb 12.1 g/dL (12.0-16.0) 05/23/20 04:35 Hct 36.3 % (36.0-47.0) 05/23/20 04:35 MCV 89.9 fL (80.0-100.0) 05/23/20 04:35 MCH 30.0 pg (27.0-34.0) 05/23/20 04:35 MCHC 33.4 g/dL (33.0-35.0) 05/23/20 04:35 RDW 14.1 % (11.6-16.5) 05/23/20 04:35 Plt Count 144 X10^3/uL (150.0-450.0) L 05/23/20 04:35 MPV 8.4 fL (7.4-11.0) 05/23/20 04:35 Neut % (Auto) 89.0 % (42.0-75.0) H 05/23/20 04:35 Lymph % (Auto) 7.6 % (21.0-51.0) L 05/23/20 04:35 [place] % (Auto) 3.3 % (0.0-13.0) 05/23/20 04:35 Eos % (Auto) 0.0 % (0.9-2.9) L 05/23/20 04:35 Baso % (Auto) 0.1 % (0.2-1.0) L 05/23/20 04:35 Neut # (Auto) 4.2 x10^3/uL (2.2-4.8) 05/23/20 04:35 Lymph # (Auto) 0.4 X10^3/uL (1.3-2.9) L 05/23/20 04:35 [place] # (Auto) 0.2 x10^3/uL (0.3-0.8) L 05/23/20 04:35 Eos # (Auto) 0.0 x10^3/uL (0.0-0.2) 05/23/20 04:35 Baso # (Auto) 0.0 X10^3/uL (0.0-0.1) 05/23/20 04:35 Absolute Nucleated RBC 0.3 /100WBC 05/23/20 04:35 Sample Site Rr 05/23/20 05:00 ABG pH 7.500 (7.35-7.45) H 05/23/20 05:00 ABG pCO2 40.0 mmHg (35.0-45.0) 05/23/20 05:00 ABG pO2 55.0 mmHg (80.0-100.0) L 05/23/20 05:00 ABG HCO3 31.2 mmol/L (22-26) H* 05/23/20 05:00 ABG O2 Saturation 91.0 % (90-100) 05/23/20 05:00 ABG Base Excess 7.4 mmol/L (-2.0-2.0) H 05/23/20 05:00 Juan Test Pos 05/23/20 05:00 A-a Gradient 394.0 mmHg 05/23/20 05:00 FiO2 70 05/23/20 05:00 Blood Gas Comments Rola well ae 05/23/20 05:00 Sodium 133 mmol/L (136-145) L 05/23/20 04:35 Corrected Sodium 139 mmol/L (136-145) 05/23/20 04:35 Potassium 3.5 mmol/L (3.5-5.1) 05/23/20 04:35 Chloride 97 mmol/L (98-107) L 05/23/20 04:35 Carbon Dioxide 28.9 mmol/L (21-32) 05/23/20 04:35 BUN 16 mg/dL (7-18) 05/23/20 04:35 Creatinine 0.98 mg/dL (0.55-1.02) 05/23/20 04:35 Est GFR (MDRD) Af Amer > 60 (>60) 05/23/20 04:35 Est GFR (MDRD) Non-Af > 60 (>60) 05/23/20 04:35 Glucose 334 mg/dL (65-99) H 05/23/20 04:35 Calcium 8.9 mg/dL (8.5-10.1) 05/23/20 04:35 Corrected Calcium TNP 05/23/20 04:35 Magnesium 2.7 mg/dL (1.7-2.9) 05/23/20 04:35 Ferritin 273 ng/mL (8-252) H 05/23/20 04:35 Total Bilirubin 0.80 mg/dL (0.2-1.0) 05/23/20 04:35 AST 15 Units/L (15-37) 05/23/20 04:35 ALT 28 Units/L (12-78) 05/23/20 04:35 Alkaline Phosphatase 58 Units/L (46-116) 05/23/20 04:35 C-Reactive Protein 103.50 mg/L (0-3.0) H 05/23/20 04:35 Total Protein 6.5 g/dL (6.4-8.2) 05/23/20 04:35 Albumin 3.7 g/dL (3.4-5.0) 05/23/20 04:35 Globulin 2.8 g/dL (2.5-4.5) 05/23/20 04:35 Albumin/Globulin Ratio 1.3 Ratio (1.1-2.1) 05/23/20 04:35 Blood Type O POSITIVE 05/20/20 09:20 - Plan (1) Pneumonia due to COVID-19 virus Status: Acute Plan: 1/2NS AT 75 ML/HR, PROCAL AT 40 ML/HR, ALBUMIN 25% IV DAILY, REMDESIVIR 100MG IV DAILY, LEVAQUIN 500MG IV DAILY, SOLU-MEDROL 20MG IV Q8H, PULMICORT NEBS BID, XOPENEX NEBS Q6H, LOVENOX 40MG SC DAILY, TUSSIONEX 5ML PO Q12H, ROBITUSSIN DM 10ML PO QID, TESSALON PERLES 200MG PO TID, THE POTASSIUM AND MAGNESIUM PROTOCOLS, AND HER HOME MEDICATIONS WERE RESUMED. (2) Hypoxia Status: Acute (3) Hypokalemia Status: Acute (4) Steroid-induced psychosis Status: Acute Plan: HOLD STEROIDS, KLONOPIN 1MG PO BID (5) Melanoma Status: Chronic Qualifiers: Melanoma location: unspecified site Qualified Code(s): C43.9 - Malignant melanoma of skin, unspecified
[2020-05-23] MEDS: LIPITOR TAB 10 MG PO SCH (21:00)
[2020-05-23] MEDS: KLONOPIN TAB 1 MG PO SCH (21:00)
[2020-05-23] MEDS: ALBUMIN HUMAN 25%- 100 ML 100 ML IV SCH (21:00)
[2020-05-23] MEDS: NORCO 5/325 MG TAB PO PRN (22:00)
[2020-05-23] MEDS ORDERED: NS 1/2 1000 ML IV 1,000 ML IV ONE (23:22)
[2020-05-24] MEDS: XOPENEX 1.25 MG/3 ML NEBULE NEB SCH ×4 (00:39→17:00)
[2020-05-24] MEDS: MUCOMYST 20% 200 MG/ML NEB SCH ×4 (00:39→17:00)
[2020-05-24] MEDS: NS 1/2 1000 ML IV 1,000 ML IV SCH ×3 (00:50→21:58)
[2020-05-24] MEDS: SOLU-Medrol 40 MG VIAL IVP SCH ×3 (05:38→21:56)
[2020-05-24] MEDS: TESSALON PERLES PO SCH ×3 (05:38→21:57)
[2020-05-24 06:34] LABS: ALANINE AMINOTRANSFERASE 26 Units/L (12-78); ALBUMIN 3.5 g/dL (3.4-5.0); ALKALINE PHOSPHATASE 61 Units/L (46-116); ASPARTATE AMINO TRANSFERASE 13 Units/L (15-37); BLOOD UREA NITROGEN 18 mg/dL (7-18); CALCIUM 8.4 mg/dL (8.5-10.1); CARBON DIOXIDE 27.7 mmol/L (21-32); CHLORIDE 101 mmol/L (98-107); COR NA(FOR HYPERGLY) 140 mmol/L (136-145); CREATININE 0.92 mg/dL (0.55-1.02); SODIUM 137 mmol/L (136-145); TOTAL PROTEIN 5.9 g/dL (6.4-8.2); eGFR NON BLACK RACES > 60 (>60)
[2020-05-24 06:38] LABS: BASOPHILS % (AUTO) 0.2 % (0.2-1.0); HEMATOCRIT 34.1 % (36.0-47.0); HEMOGLOBIN 11.5 g/dL (12.0-16.0); LYMPHOCYTES # (AUTO) 0.4 X10^3/uL (1.3-2.9); LYMPHOCYTES % (AUTO) 4.7 % (21.0-51.0); MEAN CORPUSCULAR HGB CONC 33.7 g/dL (33.0-35.0); MEAN CORPUSCULAR VOLUME 89.1 fL (80.0-100.0); MEAN PLATELET VOLUME 8.3 fL (7.4-11.0); MONOCYTES # (AUTO) 0.4 x10^3/uL (0.3-0.8); MONOCYTES % (AUTO) 4.4 % (0.0-13.0); NEUTROPHILS # (AUTO) 8.1 x10^3/uL (2.2-4.8); NEUTROPHILS % (AUTO) 90.7 % (42.0-75.0); PLATELET COUNT 159 X10^3/uL (150.0-450.0); RED BLOOD COUNT 3.83 X10^6/uL (3.5-5.4); RED CELL DISTRIBUTION WIDTH 14.1 % (11.6-16.5); WHITE BLOOD COUNT 8.9 X10^3/uL (3.6-10.0)
[2020-05-24 06:43] LABS: ABG BASE EXCESS 7.1 mmol/L (-2.0-2.0)
[2020-05-24 06:44] LABS: ABG ALLEN TEST POS; ABG HCO3 31.3 mmol/L (22-26); FRACTIONATED INSPIRED OXYGEN 70
--- NOTE | 2020-05-24 07:09 | RAD ---
HISTORYShort of breathSTUDYCHEST, 1 VIEWCOMPARISON[One day prior]TECHNIQUE[AP view of the chest.]FINDINGS[Cardiac silhouette is borderline in size. Left chest wall port with tip in good position. Stable multifocal bilateral interstitial opacities. No pleural effusion or pneumothorax.]IMPRESSION[No significant change. Stable scattered interstitial opacities consistent with pneumonia.]Electronically signed by: Morris Duckworth (May 24, 2020 07:07:55)
[2020-05-24 08:01] LABS: PLATELET MORPHOLOGY COMMENT NORMAL (NORMAL)
[2020-05-24] MEDS: LEVAQUIN PREMIX IV 500 MG 500 MG/100 ML BAG IV SCH (08:17)
[2020-05-24] MEDS: FLONASE NASAL SPRAY ENOSTRIL SCH (08:44)
[2020-05-24] MEDS: VSL#3 PO SCH (08:45)
[2020-05-24] MEDS: ZINC SULFATE PO SCH (08:45)
[2020-05-24] MEDS: SINGULAIR TAB 10 MG PO SCH (08:45)
[2020-05-24] MEDS: LOVENOX INJ 40 MG SYR SC SCH (08:46)
[2020-05-24] MEDS: PEPCID TAB 20 MG PO SCH ×2 (08:46→21:56)
[2020-05-24] MEDS: ROBITUSSIN DM PO SCH ×4 (08:46→21:56)
[2020-05-24] MEDS: SYNTHROID 137 mcg TAB PO SCH (08:46)
[2020-05-24] MEDS: LOPRESSOR TAB 50 MG PO SCH ×2 (08:47→21:55)
[2020-05-24] MEDS: MICRO K EXTEN CAP 10 MEQ PO SCH ×2 (08:47→21:56)
[2020-05-24] MEDS: NYSTATIN SUSP PO SCH ×4 (08:47→21:56)
[2020-05-24] MEDS: MAXZIDE 37.5/25 MG PO SCH (08:47)
[2020-05-24] MEDS: PULMICORT NEB TX 0.5 MG NEB SCH ×2 (09:35→21:15)
[2020-05-24] MEDS: TUSSIONEX PENNKINETIC SUSP PO SCH ×2 (09:37→21:57)
[2020-05-24] MEDS: DIFLUCAN 200 MG IV PREMIX* 200 MG/100 ML BAG IV SCH (09:38)
--- NOTE | 2020-05-24 12:47 | PCM.PROG ---
Progress Note - Progress Note for Day of Date of Exam: 05/22/20 - Subjective Subjective: IS BEING TREATED FOR PNEUMONIA DUE TO COVID-19, PNEUMONIA, AND HYPOXIA. SHE HAS ALSO EXPERIENCED SOME STEROID INDUCED PSYCHOSIS, BUT THAT SEEMS TO HAVE RESOLVED. TODAY, SHE IS ALERT AND ORIENTED, SITTING UP IN BED ON MORNING ROUNDS. SHE CONTINUES WITH SHORTNESS OF BREATH, WEAKNESS, AND COUGH TODAY. SHE IS UTILIZING HEATED HIGH FLOW OXYGEN AT THIS TIME. ON EXAMINATION, HEART IS REGULAR IN RATE AND RHYTHM. BILATERAL LUNGS CONTINUE WITH SCATTERED WHEEZING AND RHONCHI THROUGHOUT. ABDOMEN IS ROUND, SOFT, AND NON- TENDER WITH NORMAL BOWEL SOUNDS NOTED IN ALL QUADRANTS. HER VITALS THIS MORNING ARE: 100.5-87-26-92%HHF-142/75. LABS WERE OBTAINED. ABNORMAL LAB VALUES INCLUDE THE FOLLOWING: HGB 11.8, HCT 34.6, POTASSIUM 3.1, CALCIUM 8.2, CRP 24.20, TOTAL PROTEIN 6.0. AN ABG WAS REPEATED THIS MORNING AND REVEALED: PH 7.540, PC02 38.0, P02 47.0, HC03 32.5, 02 SATURATION 88.0, BASE EXCESS 9.3, FI02 40.0. BLOOD AND SPUTUM CULTURES ARE PENDING. A CHEST XRAY WAS OBTAINED AND REVEALED: The heart remains upper normal to slightly enlarged. Scattered patchy bilateral infiltrates are again noted with little interval change. There is no change in position of the left subclavian injection port. No developing pleural effusion or pneumothorax is seen. SHE IS CURRENTLY RECEIVING 1/2NS AT 75 ML/HR, PROCALAMINE 40% IV AT 40ML/HR AND ALBUMIN 25% IV DAILY, REMDESIVIR 100MG IV DAILY, LEVAQUIN 500MG IV DAILY, SOLU-MEDROL 20MG IV Q8H, PULMICORT NEBS BID, XOPENEX NEBS Q6H, LOVENOX 40MG SC DAILY, DIFLUCAN 200MG IV DAILY, TUSSIONEX 5ML PO Q12H, ROBITUSSIN DM 10ML PO QID, TESSALON PERLES 200MG PO TID, THE POTASSIUM AND MAGNESIUM PROTOCOLS, AND HER HOME MEDICATIONS WERE RESUMED. TODAY, WE WILL INCREASE HER SOLU-MEDROL TO 80MG IV TID AND ADD MUCOMYST TO NEB [place]. OTHERWISE, WE PLAN TO FOLLOW UP WITH AM LABS, ABG, AND CHEST XRAY AND CONTINUE TO MONITOR. - Past Medical Family Social History Past Med/Fam/Surg Hx: No changes since H&P Allergies: Allergies indomethacin [From Indocin] Adverse Reaction (Verified 05/16/20 13:43) - Review of Systems ROS: No change since H&P - Vital Signs and I&O's Vital Signs: Temperature 98.1 F Pulse Rate 79 Respiratory Rate 20 Blood Pressure 149/77 O2 Sat by Pulse Oximetry 94 Intake and Output: Intake & Output 05/22/20 05/23/20 05/24/20 05/25/20 11:59 11:59 11:59 11:59 Intake Total 2514 / 2514 2642 / 2642 2580 / 2580 Output Total 900 / 900 3400 / 3400 1200 / 1200 Balance 1614 / 1614 -758 / -758 1380 / 1380 - Physical Exam Oriented: Normal Eyes: Normal Ear: Normal Nose: Normal Throat: Normal Respiratory: Generalized, Wheezes, Rhonchi Cardiovascular: Normal : Normal Auscultation: Bowel Sounds: Normal Palpation: Normal Tenderness: Normal Skin: Normal Musculoskeletal: Normal Psychiatric: Normal Mood Description: Calm Affect: Normal Speech Pattern: Clear, Appropriate - Laboratory and Diagnostics Result Diagrams: 05/24/20 05:25 05/24/20 05:25 Labs: 05/16/20 12:10 Blood Blood Culture - Final 05/16/20 12:00 Blood Blood Culture - Final 05/17/20 09:38 Sputum - Expectorated Sputum Sputum Culture - Final 05/17/20 09:38 Sputum - Expectorated Sputum - Final Laboratory WBC 8.9 X10^3/uL (3.6-10.0) 05/24/20 05:25 RBC 3.83 X10^6/uL (3.5-5.4) 05/24/20 05:25 Hgb 11.5 g/dL (12.0-16.0) L 05/24/20 05:25 Hct 34.1 % (36.0-47.0) L 05/24/20 05:25 MCV 89.1 fL (80.0-100.0) 05/24/20 05:25 MCH 30.0 pg (27.0-34.0) 05/24/20 05:25 MCHC 33.7 g/dL (33.0-35.0) 05/24/20 05:25 RDW 14.1 % (11.6-16.5) 05/24/20 05:25 Plt Count 159 X10^3/uL (150.0-450.0) 05/24/20 05:25 Plt Count Comment Adequate (ADEQUATE) 05/24/20 05:25 MPV 8.3 fL (7.4-11.0) 05/24/20 05:25 Neut % (Auto) 90.7 % (42.0-75.0) H 05/24/20 05:25 Lymph % (Auto) 4.7 % (21.0-51.0) L 05/24/20 05:25 [place] % (Auto) 4.4 % (0.0-13.0) 05/24/20 05:25 Eos % (Auto) 0.0 % (0.9-2.9) L 05/24/20 05:25 Baso % (Auto) 0.2 % (0.2-1.0) 05/24/20 05:25 Neut # (Auto) 8.1 x10^3/uL (2.2-4.8) H 05/24/20 05:25 Lymph # (Auto) 0.4 X10^3/uL (1.3-2.9) L 05/24/20 05:25 [place] # (Auto) 0.4 x10^3/uL (0.3-0.8) 05/24/20 05:25 Eos # (Auto) 0.0 x10^3/uL (0.0-0.2) 05/24/20 05:25 Baso # (Auto) 0.0 X10^3/uL (0.0-0.1) 05/24/20 05:25 Absolute Nucleated RBC 0.0 /100WBC 05/24/20 05:25 Total Counted 100 05/24/20 05:25 Neutrophils % (Manual) 87 % (39-76) H 05/24/20 05:25 Lymphocytes % (Manual) 10 % (13-43) L 05/24/20 05:25 Monocytes % (Manual) 3 % (4-9) L 05/24/20 05:25 Plt Morphology Comment Normal (NORMAL) 05/24/20 05:25 RBC Morphology Normal (NORMAL) 05/24/20 05:25 Sample Site Lrad 05/24/20 06:11 ABG pH 7.480 (7.35-7.45) H 05/24/20 06:11 ABG pCO2 42.0 mmHg (35.0-45.0) 05/24/20 06:11 ABG pO2 67.0 mmHg (80.0-100.0) L 05/24/20 06:11 ABG HCO3 31.3 mmol/L (22-26) H* 05/24/20 06:11 ABG O2 Saturation 94.0 % (90-100) 05/24/20 06:11 ABG Base Excess 7.1 mmol/L (-2.0-2.0) H 05/24/20 06:11 Juan Test Pos 05/24/20 06:11 A-a Gradient 166.0 mmHg 05/24/20 06:11 FiO2 70 05/24/20 06:11 Blood Gas Comments Rola abg well-mtf 05/24/20 06:11 Sodium 137 mmol/L (136-145) 05/24/20 05:25 Corrected Sodium 140 mmol/L (136-145) 05/24/20 05:25 Potassium 3.5 mmol/L (3.5-5.1) 05/24/20 05:25 Chloride 101 mmol/L (98-107) 05/24/20 05:25 Carbon Dioxide 27.7 mmol/L (21-32) 05/24/20 05:25 BUN 18 mg/dL (7-18) 05/24/20 05:25 Creatinine 0.92 mg/dL (0.55-1.02) 05/24/20 05:25 Est GFR (MDRD) Af Amer > 60 (>60) 05/24/20 05:25 Est GFR (MDRD) Non-Af > 60 (>60) 05/24/20 05:25 Glucose 229 mg/dL (65-99) H 05/24/20 05:25 Calcium 8.4 mg/dL (8.5-10.1) L 05/24/20 05:25 Corrected Calcium TNP 05/24/20 05:25 Magnesium 2.7 mg/dL (1.7-2.9) 05/23/20 04:35 Ferritin 252 ng/mL (8-252) 05/24/20 05:25 Total Bilirubin 0.60 mg/dL (0.2-1.0) 05/24/20 05:25 AST 13 Units/L (15-37) L 05/24/20 05:25 ALT 26 Units/L (12-78) 05/24/20 05:25 Alkaline Phosphatase 61 Units/L (46-116) 05/24/20 05:25 C-Reactive Protein 38.00 mg/L (0-3.0) H 05/24/20 05:25 Total Protein 5.9 g/dL (6.4-8.2) L 05/24/20 05:25 Albumin 3.5 g/dL (3.4-5.0) 05/24/20 05:25 Globulin 2.4 g/dL (2.5-4.5) L 05/24/20 05:25 Albumin/Globulin Ratio 1.5 Ratio (1.1-2.1) 05/24/20 05:25 Miscellaneous Test Covid igg 05/20/20 04:48 Blood Type O POSITIVE 05/20/20 09:20 - Plan (1) Pneumonia due to COVID-19 virus Status: Acute Plan: 1/2NS AT 75 ML/HR, PROCAL AT 40 ML/HR, ALBUMIN 25% IV DAILY, REMDESIVIR 100MG IV DAILY, LEVAQUIN 500MG IV DAILY, SOLU-MEDROL 80MG IV Q8H, PULMICORT NEBS BID, XOPENEX NEBS Q6H, MUCOMYST IN NEB [place], LOVENOX 40MG SC DAILY, TUSSIONEX 5ML PO Q12H, ROBITUSSIN DM 10ML PO QID, TESSALON PERLES 200MG PO TID, THE POTASSIUM AND MAGNESIUM PROTOCOLS, AND HER HOME MEDICATIONS WERE RESUMED. (2) Hypoxia Status: Acute (3) Hypokalemia Status: Acute (4) Steroid-induced psychosis Status: Resolved Plan: KLONOPIN 1MG PO BID (5) Melanoma Status: Chronic Qualifiers: Melanoma location: unspecified site Qualified Code(s): C43.9 - Malignant melanoma of skin, unspecified (6) Hypertension Status: Chronic Qualifiers: Hypertension type: essential hypertension Qualified Code(s): I10 - Essential (primary) hypertension Plan: CONTINUE HOME MEDS
--- NOTE | 2020-05-24 12:53 | PCM.PROG ---
Progress Note - Progress Note for Day of Date of Exam: 05/23/20 - Subjective Subjective: IS BEING TREATED FOR PNEUMONIA DUE TO COVID-19, PNEUMONIA, AND HYPOXIA. TODAY, SHE IS ALERT AND ORIENTED, SITTING UP IN BED ON MORNING ROUNDS. SHE CONTINUES WITH SHORTNESS OF BREATH, WEAKNESS, AND COUGH TODAY. SHE IS UTILIZING HEATED HIGH FLOW OXYGEN AT THIS TIME. OXYGEN SATURATIONS HAVE OCCATIONALLY FALLEN TO THE 80s ON HEATED HIGH FLOW. ON EXAMINATION, HEART IS REGULAR IN RATE AND RHYTHM. BILATERAL LUNGS CONTINUE WITH SCATTERED WHEEZING AND RHONCHI THROUGHOUT. ABDOMEN IS ROUND, SOFT, AND NON-TENDER WITH NORMAL BOWEL SOUNDS NOTED IN ALL QUADRANTS. HER VITALS THIS MORNING ARE: 98.4-66-20-91%HHF-122/71. LABS WERE OBTAINED. ABNORMAL LAB VALUES INCLUDE THE FOLLOWING: PLT COUNT 144, SODIUM 133, CHLORIDE 97, GLUCOSE 334, FERRITIN 273, CRP 103.50. AN ABG WAS REPEATED THIS MORNING AND REVEALED: PH 7.500, PC02 40.0, P02 55.0, HC03 31.2, 02 SATURATION 91.0, BASE EXCESS 7.4, FI02 70.0. BLOOD AND SPUTUM CULTURES ARE PENDING. A CHEST XRAY WAS OBTAINED AND REVEALED: Scattered interstitial lung changes throughout the right and left chest are observed with improved aeration of the right left midlung zone. SHE IS CURRENTLY RECEIVING 1/2NS AT 75 ML/HR, ALBUMIN 25% IV DAILY, REMDESIVIR 100MG IV DAILY, LEVAQUIN 500MG IV DAILY, SOLU-MEDROL 80MG IV Q8H, PULMICORT NEBS BID, XOPENEX NEBS Q6H, MUCOMYST IN NEB [place], LOVENOX 40MG SC DAILY, DIFLUCAN 200MG IV DAILY, TUSSIONEX 5ML PO Q12H, ROBITUSSIN DM 10ML PO QID, TESSALON PERLES 200MG PO TID, THE POTASSIUM AND MAGNESIUM PROTOCOLS, AND HER HOME MEDICATIONS WERE RESUMED. WE WILL CONTINUE WITH CURRENT PLAN OF CARE TODAY. OTHERWISE, WE PLAN TO FOLLOW UP WITH AM LABS, ABG, AND CHEST XRAY AND CONTINUE TO MONITOR. - Past Medical Family Social History Past Med/Fam/Surg Hx: No changes since H&P Allergies: Allergies indomethacin [From Indocin] Adverse Reaction (Verified 05/16/20 13:43) - Review of Systems ROS: No change since H&P - Vital Signs and I&O's Vital Signs: Temperature 98.1 F Pulse Rate 79 Respiratory Rate 20 Blood Pressure 149/77 O2 Sat by Pulse Oximetry 94 Intake and Output: Intake & Output 05/22/20 05/23/20 05/24/20 05/25/20 11:59 11:59 11:59 11:59 Intake Total 2514 / 2514 2642 / 2642 2580 / 2580 Output Total 900 / 900 3400 / 3400 1200 / 1200 Balance 1614 / 1614 -758 / -758 1380 / 1380 - Physical Exam Oriented: Normal Eyes: Normal Ear: Normal Nose: Normal Throat: Normal Respiratory: Generalized, Wheezes, Rhonchi Cardiovascular: Normal : Normal Auscultation: Bowel Sounds: Normal Palpation: Normal Tenderness: Normal Skin: Normal Musculoskeletal: Normal Psychiatric: Normal Mood Description: Calm Affect: Normal Speech Pattern: Clear, Appropriate - Laboratory and Diagnostics Result Diagrams: 05/24/20 05:25 05/24/20 05:25 Labs: 05/16/20 12:10 Blood Blood Culture - Final 05/16/20 12:00 Blood Blood Culture - Final 05/17/20 09:38 Sputum - Expectorated Sputum Sputum Culture - Final 05/17/20 09:38 Sputum - Expectorated Sputum - Final Laboratory WBC 8.9 X10^3/uL (3.6-10.0) 05/24/20 05:25 RBC 3.83 X10^6/uL (3.5-5.4) 05/24/20 05:25 Hgb 11.5 g/dL (12.0-16.0) L 05/24/20 05:25 Hct 34.1 % (36.0-47.0) L 05/24/20 05:25 MCV 89.1 fL (80.0-100.0) 05/24/20 05:25 MCH 30.0 pg (27.0-34.0) 05/24/20 05:25 MCHC 33.7 g/dL (33.0-35.0) 05/24/20 05:25 RDW 14.1 % (11.6-16.5) 05/24/20 05:25 Plt Count 159 X10^3/uL (150.0-450.0) 05/24/20 05:25 Plt Count Comment Adequate (ADEQUATE) 05/24/20 05:25 MPV 8.3 fL (7.4-11.0) 05/24/20 05:25 Neut % (Auto) 90.7 % (42.0-75.0) H 05/24/20 05:25 Lymph % (Auto) 4.7 % (21.0-51.0) L 05/24/20 05:25 [place] % (Auto) 4.4 % (0.0-13.0) 05/24/20 05:25 Eos % (Auto) 0.0 % (0.9-2.9) L 05/24/20 05:25 Baso % (Auto) 0.2 % (0.2-1.0) 05/24/20 05:25 Neut # (Auto) 8.1 x10^3/uL (2.2-4.8) H 05/24/20 05:25 Lymph # (Auto) 0.4 X10^3/uL (1.3-2.9) L 05/24/20 05:25 [place] # (Auto) 0.4 x10^3/uL (0.3-0.8) 05/24/20 05:25 Eos # (Auto) 0.0 x10^3/uL (0.0-0.2) 05/24/20 05:25 Baso # (Auto) 0.0 X10^3/uL (0.0-0.1) 05/24/20 05:25 Absolute Nucleated RBC 0.0 /100WBC 05/24/20 05:25 Total Counted 100 05/24/20 05:25 Neutrophils % (Manual) 87 % (39-76) H 05/24/20 05:25 Lymphocytes % (Manual) 10 % (13-43) L 05/24/20 05:25 Monocytes % (Manual) 3 % (4-9) L 05/24/20 05:25 Plt Morphology Comment Normal (NORMAL) 05/24/20 05:25 RBC Morphology Normal (NORMAL) 05/24/20 05:25 Sample Site Lrad 05/24/20 06:11 ABG pH 7.480 (7.35-7.45) H 05/24/20 06:11 ABG pCO2 42.0 mmHg (35.0-45.0) 05/24/20 06:11 ABG pO2 67.0 mmHg (80.0-100.0) L 05/24/20 06:11 ABG HCO3 31.3 mmol/L (22-26) H* 05/24/20 06:11 ABG O2 Saturation 94.0 % (90-100) 05/24/20 06:11 ABG Base Excess 7.1 mmol/L (-2.0-2.0) H 05/24/20 06:11 Juan Test Pos 05/24/20 06:11 A-a Gradient 166.0 mmHg 05/24/20 06:11 FiO2 70 05/24/20 06:11 Blood Gas Comments Rola abg well-mtf 05/24/20 06:11 Sodium 137 mmol/L (136-145) 05/24/20 05:25 Corrected Sodium 140 mmol/L (136-145) 05/24/20 05:25 Potassium 3.5 mmol/L (3.5-5.1) 05/24/20 05:25 Chloride 101 mmol/L (98-107) 05/24/20 05:25 Carbon Dioxide 27.7 mmol/L (21-32) 05/24/20 05:25 BUN 18 mg/dL (7-18) 05/24/20 05:25 Creatinine 0.92 mg/dL (0.55-1.02) 05/24/20 05:25 Est GFR (MDRD) Af Amer > 60 (>60) 05/24/20 05:25 Est GFR (MDRD) Non-Af > 60 (>60) 05/24/20 05:25 Glucose 229 mg/dL (65-99) H 05/24/20 05:25 Calcium 8.4 mg/dL (8.5-10.1) L 05/24/20 05:25 Corrected Calcium TNP 05/24/20 05:25 Magnesium 2.7 mg/dL (1.7-2.9) 05/23/20 04:35 Ferritin 252 ng/mL (8-252) 05/24/20 05:25 Total Bilirubin 0.60 mg/dL (0.2-1.0) 05/24/20 05:25 AST 13 Units/L (15-37) L 05/24/20 05:25 ALT 26 Units/L (12-78) 05/24/20 05:25 Alkaline Phosphatase 61 Units/L (46-116) 05/24/20 05:25 C-Reactive Protein 38.00 mg/L (0-3.0) H 05/24/20 05:25 Total Protein 5.9 g/dL (6.4-8.2) L 05/24/20 05:25 Albumin 3.5 g/dL (3.4-5.0) 05/24/20 05:25 Globulin 2.4 g/dL (2.5-4.5) L 05/24/20 05:25 Albumin/Globulin Ratio 1.5 Ratio (1.1-2.1) 05/24/20 05:25 Miscellaneous Test Covid igg 05/20/20 04:48 Blood Type O POSITIVE 05/20/20 09:20 - Plan (1) Pneumonia due to COVID-19 virus Status: Acute Plan: 1/2NS AT 75 ML/HR, ALBUMIN 25% IV DAILY, REMDESIVIR 100MG IV DAILY, LEVAQUIN 500MG IV DAILY, SOLU-MEDROL 80MG IV Q8H, PULMICORT NEBS BID, XOPENEX NEBS Q6H, MUCOMYST IN NEB [place], LOVENOX 40MG SC DAILY, TUSSIONEX 5ML PO Q12H, ROBITUSSIN DM 10ML PO QID, TESSALON PERLES 200MG PO TID, THE POTASSIUM AND MAGNESIUM PROTOCOLS, AND HER HOME MEDICATIONS WERE RESUMED. (2) Hypoxia Status: Acute (3) Hypokalemia Status: Acute (4) Steroid-induced psychosis Status: Resolved Plan: KLONOPIN 1MG PO BID (5) Melanoma Status: Chronic Qualifiers: Melanoma location: unspecified site Qualified Code(s): C43.9 - Malignant melanoma of skin, unspecified (6) Hypertension Status: Chronic Qualifiers: Hypertension type: essential hypertension Qualified Code(s): I10 - Essential (primary) hypertension Plan: CONTINUE HOME MEDS
--- NOTE | 2020-05-24 20:53 | PCM.PROG ---
Progress Note - Progress Note for Day of Date of Exam: 05/24/20 - Subjective Subjective: IS BEING TREATED FOR PNEUMONIA DUE TO COVID-19 AND HYPOXIA. TODAY, SHE IS ALERT AND ORIENTED, SITTING UP IN BED ON MORNING ROUNDS. SHE CONTINUES WITH SHORTNESS OF BREATH, WEAKNESS, AND COUGH TODAY. SHE IS UTILIZING HEATED HIGH FLOW OXYGEN AT THIS TIME. ON EXAMINATION, HEART IS REGULAR IN RATE AND RHYTHM. BILATERAL LUNGS ARE NOTED WITH DIMINISHED LUNG SOUNDS THROUGHOUT. ABDOMEN IS ROUND, SOFT, AND NON-TENDER WITH NORMAL BOWEL SOUNDS NOTED IN ALL QUADRANTS. HER VITALS THIS MORNING ARE: 98.0-74-20-94%-132/74. LABS WERE OBTAINED. ABNORMAL LAB VALUES INCLUDE THE FOLLOWING: HGB 11.5, HCT 34.1, GLUCOSE 229, CALCIUM 8.4, AST 13, CRP 38.0, TOTAL PROTEIN 5.9. AN ABG WAS REPEATED THIS MORNING AND REVEALED: PH 7.480, PC02 42.0, P02 67.0, HC03 31.3, 02 SATURATION 94.0, BASE EXCESS 7.1, FI02 70.0. A CHEST XRAY WAS OBTAINED AND REVEALED: No significant change. Stable scattered interstitial opacities consistent with pneumonia. SHE IS CURRENTLY RECEIVING 1/2NS AT 75 ML/HR, ALBUMIN 25% IV DAILY, REMDESIVIR 100MG IV DAILY, LEVAQUIN 500MG IV DAILY, SOLU-MEDROL 80MG IV Q8H, PULMICORT NEBS BID, XOPENEX NEBS Q6H, MUCOMYST IN NEB [place], LOVENOX 40MG SC DAILY, DIFLUCAN 200MG IV DAILY, TUSSIONEX 5ML PO Q12H, ROBITUSSIN DM 10ML PO QID, TESSALON PERLES 200MG PO TID, THE POTASSIUM AND MAGNESIUM PROTOCOLS, AND HER HOME MEDICATIONS WERE RESUMED. WE WILL DISCONTINUE THE REMDESIVIR TODAY. OTHERWISE, WE WILL CONTINUE WITH CURRENT PLAN OF CARE. OTHERWISE, WE PLAN TO FOLLOW UP WITH AM LABS, ABG, AND CHEST XRAY AND CONTINUE TO MONITOR. - Past Medical Family Social History Past Med/Fam/Surg Hx: No changes since H&P Allergies: Allergies indomethacin [From Indocin] Adverse Reaction (Verified 05/16/20 13:43) - Review of Systems ROS: No change since H&P - Vital Signs and I&O's Vital Signs: Temperature 97.8 F Pulse Rate 71 Respiratory Rate 22 Blood Pressure 160/82 O2 Sat by Pulse Oximetry 93 Intake and Output: Intake & Output 05/22/20 05/23/20 05/24/20 05/25/20 11:59 11:59 11:59 11:59 Intake Total 2514 / 2514 2642 / 2642 2580 / 2580 823 / 823 Output Total 900 / 900 3400 / 3400 1200 / 1200 Balance 1614 / 1614 -758 / -758 1380 / 1380 823 / 823 - Physical Exam Oriented: Normal Eyes: Normal Ear: Normal Nose: Normal Throat: Normal Respiratory: Generalized, Diminished Cardiovascular: Normal : Normal Auscultation: Bowel Sounds: Normal Tenderness: Normal Skin: Normal Musculoskeletal: Normal Psychiatric: Normal Mood Description: Calm Affect: Normal Speech Pattern: Clear, Appropriate - Laboratory and Diagnostics Result Diagrams: 05/24/20 05:25 05/24/20 05:25 Labs: 05/16/20 12:10 Blood Blood Culture - Final 05/16/20 12:00 Blood Blood Culture - Final 05/17/20 09:38 Sputum - Expectorated Sputum Sputum Culture - Final 05/17/20 09:38 Sputum - Expectorated Sputum - Final Laboratory WBC 8.9 X10^3/uL (3.6-10.0) 05/24/20 05:25 RBC 3.83 X10^6/uL (3.5-5.4) 05/24/20 05:25 Hgb 11.5 g/dL (12.0-16.0) L 05/24/20 05:25 Hct 34.1 % (36.0-47.0) L 05/24/20 05:25 MCV 89.1 fL (80.0-100.0) 05/24/20 05:25 MCH 30.0 pg (27.0-34.0) 05/24/20 05:25 MCHC 33.7 g/dL (33.0-35.0) 05/24/20 05:25 RDW 14.1 % (11.6-16.5) 05/24/20 05:25 Plt Count 159 X10^3/uL (150.0-450.0) 05/24/20 05:25 Plt Count Comment Adequate (ADEQUATE) 05/24/20 05:25 MPV 8.3 fL (7.4-11.0) 05/24/20 05:25 Neut % (Auto) 90.7 % (42.0-75.0) H 05/24/20 05:25 Lymph % (Auto) 4.7 % (21.0-51.0) L 05/24/20 05:25 [place] % (Auto) 4.4 % (0.0-13.0) 05/24/20 05:25 Eos % (Auto) 0.0 % (0.9-2.9) L 05/24/20 05:25 Baso % (Auto) 0.2 % (0.2-1.0) 05/24/20 05:25 Neut # (Auto) 8.1 x10^3/uL (2.2-4.8) H 05/24/20 05:25 Lymph # (Auto) 0.4 X10^3/uL (1.3-2.9) L 05/24/20 05:25 [place] # (Auto) 0.4 x10^3/uL (0.3-0.8) 05/24/20 05:25 Eos # (Auto) 0.0 x10^3/uL (0.0-0.2) 05/24/20 05:25 Baso # (Auto) 0.0 X10^3/uL (0.0-0.1) 05/24/20 05:25 Absolute Nucleated RBC 0.0 /100WBC 05/24/20 05:25 Total Counted 100 05/24/20 05:25 Neutrophils % (Manual) 87 % (39-76) H 05/24/20 05:25 Lymphocytes % (Manual) 10 % (13-43) L 05/24/20 05:25 Monocytes % (Manual) 3 % (4-9) L 05/24/20 05:25 Plt Morphology Comment Normal (NORMAL) 05/24/20 05:25 RBC Morphology Normal (NORMAL) 05/24/20 05:25 Sample Site Lrad 05/24/20 06:11 ABG pH 7.480 (7.35-7.45) H 05/24/20 06:11 ABG pCO2 42.0 mmHg (35.0-45.0) 05/24/20 06:11 ABG pO2 67.0 mmHg (80.0-100.0) L 05/24/20 06:11 ABG HCO3 31.3 mmol/L (22-26) H* 05/24/20 06:11 ABG O2 Saturation 94.0 % (90-100) 05/24/20 06:11 ABG Base Excess 7.1 mmol/L (-2.0-2.0) H 05/24/20 06:11 Juan Test Pos 05/24/20 06:11 A-a Gradient 166.0 mmHg 05/24/20 06:11 FiO2 70 05/24/20 06:11 Blood Gas Comments Rola abg well-mtf 05/24/20 06:11 Sodium 137 mmol/L (136-145) 05/24/20 05:25 Corrected Sodium 140 mmol/L (136-145) 05/24/20 05:25 Potassium 3.5 mmol/L (3.5-5.1) 05/24/20 05:25 Chloride 101 mmol/L (98-107) 05/24/20 05:25 Carbon Dioxide 27.7 mmol/L (21-32) 05/24/20 05:25 BUN 18 mg/dL (7-18) 05/24/20 05:25 Creatinine 0.92 mg/dL (0.55-1.02) 05/24/20 05:25 Est GFR (MDRD) Af Amer > 60 (>60) 05/24/20 05:25 Est GFR (MDRD) Non-Af > 60 (>60) 05/24/20 05:25 Glucose 229 mg/dL (65-99) H 05/24/20 05:25 Calcium 8.4 mg/dL (8.5-10.1) L 05/24/20 05:25 Corrected Calcium TNP 05/24/20 05:25 Magnesium 2.7 mg/dL (1.7-2.9) 05/23/20 04:35 Ferritin 252 ng/mL (8-252) 05/24/20 05:25 Total Bilirubin 0.60 mg/dL (0.2-1.0) 05/24/20 05:25 AST 13 Units/L (15-37) L 05/24/20 05:25 ALT 26 Units/L (12-78) 05/24/20 05:25 Alkaline Phosphatase 61 Units/L (46-116) 05/24/20 05:25 C-Reactive Protein 38.00 mg/L (0-3.0) H 05/24/20 05:25 Total Protein 5.9 g/dL (6.4-8.2) L 05/24/20 05:25 Albumin 3.5 g/dL (3.4-5.0) 05/24/20 05:25 Globulin 2.4 g/dL (2.5-4.5) L 05/24/20 05:25 Albumin/Globulin Ratio 1.5 Ratio (1.1-2.1) 05/24/20 05:25 Miscellaneous Test Covid igg 05/20/20 04:48 Blood Type O POSITIVE 05/20/20 09:20 - Plan (1) Pneumonia due to COVID-19 virus Status: Acute Plan: 1/2NS AT 75 ML/HR, ALBUMIN 25% IV DAILY, LEVAQUIN 500MG IV DAILY, SOLU- MEDROL 80MG IV Q8H, PULMICORT NEBS BID, XOPENEX NEBS Q6H, MUCOMYST IN NEB [place], LOVENOX 40MG SC DAILY, TUSSIONEX 5ML PO Q12H, ROBITUSSIN DM 10ML PO QID, TESSALON PERLES 200MG PO TID, THE POTASSIUM AND MAGNESIUM PROTOCOLS, AND HER HOME MEDICATIONS WERE RESUMED. (2) Hypoxia Status: Acute (3) Hypokalemia Status: Acute (4) Steroid-induced psychosis Status: Resolved Plan: KLONOPIN 1MG PO BID (5) Melanoma Status: Chronic Qualifiers: Melanoma location: unspecified site Qualified Code(s): C43.9 - Malignant melanoma of skin, unspecified (6) Hypertension Status: Chronic Qualifiers: Hypertension type: essential hypertension Qualified Code(s): I10 - Essential (primary) hypertension Plan: CONTINUE HOME MEDS
[2020-05-24] MEDS ORDERED: NS 1/2 1000 ML IV 1,000 ML IV ONE (21:45)
[2020-05-24] MEDS: ALBUMIN HUMAN 25%- 100 ML 100 ML IV SCH (21:54)
[2020-05-24] MEDS: LIPITOR TAB 10 MG PO SCH (21:55)
[2020-05-24] MEDS: KLONOPIN TAB 1 MG PO SCH (21:55)
[2020-05-24] MEDS: NORCO 5/325 MG TAB PO PRN (22:04)
[2020-05-25] MEDS: NS 1/2 1000 ML IV 1,000 ML IV SCH ×3 (00:12→20:00)
[2020-05-25] MEDS: XOPENEX 1.25 MG/3 ML NEBULE NEB SCH ×4 (00:40→17:05)
[2020-05-25] MEDS: MUCOMYST 20% 200 MG/ML NEB SCH ×4 (00:40→17:05)
[2020-05-25 06:22] LABS: ALANINE AMINOTRANSFERASE 21 Units/L (12-78); ALBUMIN 3.9 g/dL (3.4-5.0); ALKALINE PHOSPHATASE 68 Units/L (46-116); ASPARTATE AMINO TRANSFERASE 8 Units/L (15-37); BLOOD UREA NITROGEN 17 mg/dL (7-18); CALCIUM 8.7 mg/dL (8.5-10.1); CARBON DIOXIDE 29.8 mmol/L (21-32); CHLORIDE 100 mmol/L (98-107); COR NA(FOR HYPERGLY) 142 mmol/L (136-145); SODIUM 139 mmol/L (136-145); TOTAL PROTEIN 6.2 g/dL (6.4-8.2); eGFR NON BLACK RACES > 60 (>60)
[2020-05-25 06:30] LABS: BASOPHILS % (AUTO) 0.1 % (0.2-1.0); HEMATOCRIT 34.4 % (36.0-47.0); HEMOGLOBIN 11.5 g/dL (12.0-16.0); LYMPHOCYTES # (AUTO) 0.4 X10^3/uL (1.3-2.9); LYMPHOCYTES % (AUTO) 5.5 % (21.0-51.0); MEAN CORPUSCULAR HEMOGLOBIN 30.2 pg (27.0-34.0); MEAN CORPUSCULAR HGB CONC 33.5 g/dL (33.0-35.0); MEAN CORPUSCULAR VOLUME 90.2 fL (80.0-100.0); MEAN PLATELET VOLUME 8.5 fL (7.4-11.0); MONOCYTES # (AUTO) 0.5 x10^3/uL (0.3-0.8); NEUTROPHILS # (AUTO) 6.8 x10^3/uL (2.2-4.8); NEUTROPHILS % (AUTO) 88.4 % (42.0-75.0); PLATELET COUNT 165 X10^3/uL (150.0-450.0); RED BLOOD COUNT 3.81 X10^6/uL (3.5-5.4); RED CELL DISTRIBUTION WIDTH 14.4 % (11.6-16.5); WHITE BLOOD COUNT 7.7 X10^3/uL (3.6-10.0)
[2020-05-25] MEDS: TESSALON PERLES PO SCH ×3 (06:30→21:30)
[2020-05-25 06:54] LABS: ABG BASE EXCESS 9.8 mmol/L (-2.0-2.0)
[2020-05-25 06:56] LABS: ABG ALLEN TEST POS; ABG HCO3 34.9 mmol/L (22-26)
--- NOTE | 2020-05-25 08:15 | RAD ---
HISTORYSOBSTUDYCHEST, 1 VIEWCOMPARISON[One day prior]TECHNIQUE[AP view of the chest.]FINDINGS[Cardiac silhouette and mediastinal contours are unchanged. Left chest wall port tip in stable position. No significant change in multifocal bilateral airspace and interstitial opacities. No pleural effusion or pneumothorax.]IMPRESSION[No significant change.]Electronically signed by: Morris Duckworth (May 25, 2020 06:33:42)
[2020-05-25] MEDS: DIFLUCAN 200 MG IV PREMIX* 200 MG/100 ML BAG IV SCH (08:24)
[2020-05-25] MEDS: FLONASE NASAL SPRAY ENOSTRIL SCH (08:49)
[2020-05-25] MEDS: MICRO K EXTEN CAP 10 MEQ PO SCH ×2 (08:49→20:53)
[2020-05-25] MEDS: ZINC SULFATE PO SCH (08:50)
[2020-05-25] MEDS: SYNTHROID 137 mcg TAB PO SCH (08:50)
[2020-05-25] MEDS: PEPCID TAB 20 MG PO SCH ×2 (08:50→20:53)
[2020-05-25] MEDS: ROBITUSSIN DM PO SCH ×4 (08:50→20:52)
[2020-05-25] MEDS: LOPRESSOR TAB 50 MG PO SCH ×2 (08:51→20:54)
[2020-05-25] MEDS: VSL#3 PO SCH (08:52)
[2020-05-25] MEDS: MAXZIDE 37.5/25 MG PO SCH (08:52)
[2020-05-25] MEDS: NYSTATIN SUSP PO SCH ×4 (08:52→20:54)
[2020-05-25] MEDS: LOVENOX INJ 40 MG SYR SC SCH (08:53)
[2020-05-25] MEDS: SINGULAIR TAB 10 MG PO SCH (08:54)
[2020-05-25] MEDS: TUSSIONEX PENNKINETIC SUSP PO SCH ×2 (08:59→21:30)
[2020-05-25] MEDS: PULMICORT NEB TX 0.5 MG NEB SCH ×2 (09:00→21:45)
[2020-05-25] MEDS: LEVAQUIN PREMIX IV 500 MG 500 MG/100 ML BAG IV SCH (09:32)
[2020-05-25] MEDS: K-DUR TAB 20 MEQ PO PRN (09:57)
[2020-05-25] MEDS: SOLU-Medrol 40 MG VIAL IVP SCH ×3 (11:47→21:30)
[2020-05-25] MEDS: POTASSIUM CHLORIDE LIQ 20 MEQ UDC PO PRN (12:42)
[2020-05-25] MEDS: KLONOPIN TAB 1 MG PO SCH (20:52)
[2020-05-25] MEDS: LIPITOR TAB 10 MG PO SCH (20:54)
[2020-05-25] MEDS: NORCO 5/325 MG TAB PO PRN (20:55)
[2020-05-25] MEDS: ALBUMIN HUMAN 25%- 100 ML 100 ML IV SCH (22:00)
[2020-05-26] MEDS: MUCOMYST 20% 200 MG/ML NEB SCH (00:30)
[2020-05-26] MEDS: XOPENEX 1.25 MG/3 ML NEBULE NEB SCH ×4 (00:30→21:35)
[2020-05-26] MEDS: TESSALON PERLES PO SCH ×3 (05:27→21:22)
[2020-05-26] MEDS: SOLU-Medrol 40 MG VIAL IVP SCH ×3 (05:30→21:22)
[2020-05-26 05:48] LABS: ABG ALLEN TEST POS; ABG BASE EXCESS 6.7 mmol/L (-2.0-2.0); ABG HCO3 31.9 mmol/L (22-26)
[2020-05-26] MEDS ORDERED: NS 1/2 1000 ML IV 1,000 ML IV ONE (05:55)
[2020-05-26] MEDS: NS 1/2 1000 ML IV 1,000 ML IV SCH ×2 (06:12→09:19)
[2020-05-26 06:28] LABS: BASOPHILS % (AUTO) 0.1 % (0.2-1.0); HEMATOCRIT 36.4 % (36.0-47.0); HEMOGLOBIN 12.2 g/dL (12.0-16.0); LYMPHOCYTES # (AUTO) 0.4 X10^3/uL (1.3-2.9); LYMPHOCYTES % (AUTO) 4.7 % (21.0-51.0); MEAN CORPUSCULAR HEMOGLOBIN 30.2 pg (27.0-34.0); MEAN CORPUSCULAR HGB CONC 33.5 g/dL (33.0-35.0); MEAN CORPUSCULAR VOLUME 90.3 fL (80.0-100.0); MEAN PLATELET VOLUME 8.8 fL (7.4-11.0); MONOCYTES # (AUTO) 0.3 x10^3/uL (0.3-0.8); MONOCYTES % (AUTO) 3.2 % (0.0-13.0); NEUTROPHILS # (AUTO) 7.4 x10^3/uL (2.2-4.8); PLATELET COUNT 156 X10^3/uL (150.0-450.0); RED BLOOD COUNT 4.03 X10^6/uL (3.5-5.4); RED CELL DISTRIBUTION WIDTH 14.5 % (11.6-16.5)
[2020-05-26 06:33] LABS: ALANINE AMINOTRANSFERASE 28 Units/L (12-78); ALBUMIN 3.9 g/dL (3.4-5.0); ALKALINE PHOSPHATASE 67 Units/L (46-116); ASPARTATE AMINO TRANSFERASE 12 Units/L (15-37); BLOOD UREA NITROGEN 20 mg/dL (7-18); CALCIUM 8.7 mg/dL (8.5-10.1); CARBON DIOXIDE 28.4 mmol/L (21-32); CHLORIDE 100 mmol/L (98-107); COR NA(FOR HYPERGLY) 138 mmol/L (136-145); CREATININE 0.89 mg/dL (0.55-1.02); SODIUM 135 mmol/L (136-145); TOTAL PROTEIN 6.2 g/dL (6.4-8.2); eGFR NON BLACK RACES > 60 (>60)
--- NOTE | 2020-05-26 07:05 | RAD ---
HISTORYShortness of breathSTUDYChest AP [id number]/11/2020FINDINGSThere is a left-sided port present. The heart is upper limits nor mal in size. No congestive heart failure is noted. Bilateral interstitial and some patchy alveolar in filtrates are unchanged in degree or distribution from the prior examination. No pleural effusions ar e identified. Bony thorax is unremarkable.IMPRESSIONNo change bilateral interstitial and some patchy alveolar infiltratesElectronically signed by: MARLINE REYES (May 26, 2020 07:04:04)
[2020-05-26] MEDS: VSL#3 PO SCH (08:03)
[2020-05-26] MEDS: PEPCID TAB 20 MG PO SCH ×2 (08:03→21:22)
[2020-05-26] MEDS: LOPRESSOR TAB 50 MG PO SCH ×2 (08:03→21:25)
[2020-05-26] MEDS: LEVAQUIN PREMIX IV 500 MG 500 MG/100 ML BAG IV SCH (08:03)
[2020-05-26 08:04] LABS: PLATELET MORPHOLOGY COMMENT NORMAL (NORMAL)
[2020-05-26] MEDS: SYNTHROID 137 mcg TAB PO SCH (08:04)
[2020-05-26] MEDS: MAXZIDE 37.5/25 MG PO SCH (08:04)
[2020-05-26] MEDS: ROBITUSSIN DM PO SCH ×4 (08:04→21:24)
[2020-05-26] MEDS: ZINC SULFATE PO SCH (08:04)
[2020-05-26] MEDS: SINGULAIR TAB 10 MG PO SCH (08:04)
[2020-05-26] MEDS: LOVENOX INJ 40 MG SYR SC SCH (08:05)
[2020-05-26] MEDS: NYSTATIN SUSP PO SCH ×4 (08:05→21:24)
[2020-05-26] MEDS: MICRO K EXTEN CAP 10 MEQ PO SCH ×2 (08:05→21:24)
[2020-05-26] MEDS: FLONASE NASAL SPRAY ENOSTRIL SCH (08:05)
[2020-05-26] MEDS: PULMICORT NEB TX 0.5 MG NEB SCH ×2 (08:15→21:35)
[2020-05-26] MEDS: DIFLUCAN 200 MG IV PREMIX* 200 MG/100 ML BAG IV SCH (09:11)
[2020-05-26] MEDS: TUSSIONEX PENNKINETIC SUSP PO SCH ×2 (09:18→21:29)
[2020-05-26] MEDS ORDERED: XOPENEX 1.25 MG/3 ML NEBULE NEB ONE (12:44)
--- NOTE | 2020-05-26 13:30 | PCM.PROG ---
Progress Note - Progress Note for Day of Date of Exam: 05/25/20 - Subjective Subjective: IS BEING TREATED FOR PNEUMONIA DUE TO COVID-19 AND HYPOXIA. TODAY, SHE IS ALERT AND ORIENTED, SITTING UP IN BED ON MORNING ROUNDS. SHE CONTINUES WITH SHORTNESS OF BREATH, WEAKNESS, AND COUGH TODAY, BUT REPORTS SLIGHT IMPROVEMENT IN SYMPTOMS SINCE YESTERDAY. SHE IS UTILIZING HEATED HIGH FLOW OXYGEN AT THIS TIME. ON EXAMINATION, HEART IS REGULAR IN RATE AND RHYTHM. BILATERAL LUNGS ARE NOTED WITH DIMINISHED LUNG SOUNDS THROUGHOUT. ABDOMEN IS ROUND, SOFT, AND NON-TENDER WITH NORMAL BOWEL SOUNDS NOTED IN ALL QUADRANTS. HER VITALS THIS MORNING ARE: 97.0-97-23-96%HHF-154/79. LABS WERE OBTAINED. ABNORMAL LAB VALUES INCLUDE THE FOLLOWING: HGB 11.5, HCT 34.4, POTASSIUM 3.0, GLUCOSE 243, AST 8, CRP 18.90, TOTAL PROTEIN 6.2. A CHEST XRAY WAS OBTAINED AND REVEALED: Cardiac silhouette and mediastinal contours are unchanged. Left chest wall port tip in stable position. No significant change in multifocal bilateral airspace and interstitial opacities. No pleural effusion or pneumothorax. SHE IS CURRENTLY RECEIVING 1/2NS AT 75 ML/HR, ALBUMIN 25% IV DAILY, LEVAQUIN 500MG IV DAILY, SOLU-MEDROL 80MG IV Q8H, PULMICORT NEBS BID, XOPENEX NEBS Q6H, MUCOMYST IN NEB [place], LOVENOX 40MG SC DAILY, DIFLUCAN 200MG IV DAILY, TUSSIONEX 5ML PO Q12H, ROBITUSSIN DM 10ML PO QID, TESSALON PERLES 200MG PO TID, THE POTASSIUM AND MAGNESIUM PROTOCOLS, AND HER HOME MEDICATIONS WERE RESUMED. WE WILL CONTINUE WITH CURRENT PLAN OF CARE. OTHERWISE, WE PLAN TO FOLLOW UP WITH AM LABS, ABG, AND CHEST XRAY AND CONTINUE TO MONITOR. - Past Medical Family Social History Past Med/Fam/Surg Hx: No changes since H&P Allergies: Allergies indomethacin [From Indocin] Adverse Reaction (Verified 05/16/20 13:43) - Review of Systems ROS: No change since H&P - Vital Signs and I&O's Vital Signs: Temperature 97.5 F Pulse Rate 63 Respiratory Rate 20 Blood Pressure 161/82 O2 Sat by Pulse Oximetry 94 Intake and Output: Intake & Output 05/24/20 05/25/20 05/26/20 05/27/20 11:59 11:59 11:59 11:59 Intake Total 2580 / 2580 2253 / 2253 2503 / 2503 Output Total 1200 / 1200 Balance 1380 / 1380 2253 / 2253 2503 / 2503 - Physical Exam Oriented: Normal Eyes: Normal Ear: Normal Nose: Normal Throat: Normal Respiratory: Generalized, Diminished Cardiovascular: Normal : Normal Auscultation: Bowel Sounds: Normal Palpation: Normal Tenderness: Normal Skin: Normal Musculoskeletal: Normal Psychiatric: Normal Mood Description: Calm Affect: Normal Speech Pattern: Clear, Appropriate - Laboratory and Diagnostics Result Diagrams: 05/26/20 04:30 05/26/20 04:30 Labs: 05/16/20 12:10 Blood Blood Culture - Final 05/16/20 12:00 Blood Blood Culture - Final 05/17/20 09:38 Sputum - Expectorated Sputum Sputum Culture - Final 05/17/20 09:38 Sputum - Expectorated Sputum - Final Laboratory WBC 8.0 X10^3/uL (3.6-10.0) 05/26/20 04:30 RBC 4.03 X10^6/uL (3.5-5.4) 05/26/20 04:30 Hgb 12.2 g/dL (12.0-16.0) 05/26/20 04:30 Hct 36.4 % (36.0-47.0) 05/26/20 04:30 MCV 90.3 fL (80.0-100.0) 05/26/20 04:30 MCH 30.2 pg (27.0-34.0) 05/26/20 04:30 MCHC 33.5 g/dL (33.0-35.0) 05/26/20 04:30 RDW 14.5 % (11.6-16.5) 05/26/20 04:30 Plt Count 156 X10^3/uL (150.0-450.0) 05/26/20 04:30 Plt Count Comment Adequate (ADEQUATE) 05/26/20 04:30 MPV 8.8 fL (7.4-11.0) 05/26/20 04:30 Neut % (Auto) 92.0 % (42.0-75.0) H 05/26/20 04:30 Lymph % (Auto) 4.7 % (21.0-51.0) L 05/26/20 04:30 [place] % (Auto) 3.2 % (0.0-13.0) 05/26/20 04:30 Eos % (Auto) 0.0 % (0.9-2.9) L 05/26/20 04:30 Baso % (Auto) 0.1 % (0.2-1.0) L 05/26/20 04:30 Neut # (Auto) 7.4 x10^3/uL (2.2-4.8) H 05/26/20 04:30 Lymph # (Auto) 0.4 X10^3/uL (1.3-2.9) L 05/26/20 04:30 [place] # (Auto) 0.3 x10^3/uL (0.3-0.8) 05/26/20 04:30 Eos # (Auto) 0.0 x10^3/uL (0.0-0.2) 05/26/20 04:30 Baso # (Auto) 0.0 X10^3/uL (0.0-0.1) 05/26/20 04:30 Absolute Nucleated RBC 0.1 /100WBC 05/26/20 04:30 Total Counted 100 05/26/20 04:30 Neutrophils % (Manual) 92 % (39-76) H 05/26/20 04:30 Lymphocytes % (Manual) 6 % (13-43) L 05/26/20 04:30 Monocytes % (Manual) 2 % (4-9) L 05/26/20 04:30 Plt Morphology Comment Normal (NORMAL) 05/26/20 04:30 RBC Morphology Normal (NORMAL) 05/26/20 04:30 Sample Site Rr 05/26/20 05:43 ABG pH 7.440 (7.35-7.45) 05/26/20 05:43 ABG pCO2 47.0 mmHg (35.0-45.0) H 05/26/20 05:43 ABG pO2 68.0 mmHg (80.0-100.0) L 05/26/20 05:43 ABG HCO3 31.9 mmol/L (22-26) H* 05/26/20 05:43 ABG O2 Saturation 94.0 % (90-100) 05/26/20 05:43 ABG Base Excess 6.7 mmol/L (-2.0-2.0) H 05/26/20 05:43 Juan Test Pos 05/26/20 05:43 A-a Gradient 137.0 mmHg 05/26/20 05:43 FiO2 37.0 05/26/20 05:43 Blood Gas Comments Rola well sw 05/26/20 05:43 Sodium 135 mmol/L (136-145) L 05/26/20 04:30 Corrected Sodium 138 mmol/L (136-145) 05/26/20 04:30 Potassium 4.5 mmol/L (3.5-5.1) 05/26/20 04:30 Chloride 100 mmol/L (98-107) 05/26/20 04:30 Carbon Dioxide 28.4 mmol/L (21-32) 05/26/20 04:30 BUN 20 mg/dL (7-18) H 05/26/20 04:30 Creatinine 0.89 mg/dL (0.55-1.02) 05/26/20 04:30 Est GFR (MDRD) Af Amer > 60 (>60) 05/26/20 04:30 Est GFR (MDRD) Non-Af > 60 (>60) 05/26/20 04:30 Glucose 231 mg/dL (65-99) H 05/26/20 04:30 Calcium 8.7 mg/dL (8.5-10.1) 05/26/20 04:30 Corrected Calcium TNP 05/26/20 04:30 Magnesium 2.7 mg/dL (1.7-2.9) 05/23/20 04:35 Ferritin 205 ng/mL (8-252) 05/26/20 04:30 Total Bilirubin 0.70 mg/dL (0.2-1.0) 05/26/20 04:30 AST 12 Units/L (15-37) L 05/26/20 04:30 ALT 28 Units/L (12-78) 05/26/20 04:30 Alkaline Phosphatase 67 Units/L (46-116) 05/26/20 04:30 C-Reactive Protein 10.10 mg/L (0-3.0) H 05/26/20 04:30 Total Protein 6.2 g/dL (6.4-8.2) L 05/26/20 04:30 Albumin 3.9 g/dL (3.4-5.0) 05/26/20 04:30 Globulin 2.3 g/dL (2.5-4.5) L 05/26/20 04:30 Albumin/Globulin Ratio 1.7 Ratio (1.1-2.1) 05/26/20 04:30 Miscellaneous Test Covid igg 05/20/20 04:48 Blood Type O POSITIVE 05/20/20 09:20 - Plan (1) Pneumonia due to COVID-19 virus Status: Acute Plan: 1/2NS AT 75 ML/HR, ALBUMIN 25% IV DAILY, LEVAQUIN 500MG IV DAILY, SOLU-ME DROL 80MG IV Q8H, PULMICORT NEBS BID, XOPENEX NEBS Q6H, MUCOMYST IN NEB [place], LOVENOX 40MG SC DAILY, TUSSIONEX 5ML PO Q12H, ROBITUSSIN DM 10ML PO QID, TESSALON PERLES 200MG PO TID, THE POTASSIUM AND MAGNESIUM PROTOCOLS, AND HER HOME MEDICATIONS WERE RESUMED. (2) Hypoxia Status: Acute (3) Hypokalemia Status: Acute (4) Steroid-induced psychosis Status: Resolved Plan: KLONOPIN 1MG PO BID (5) Melanoma Status: Chronic Qualifiers: Melanoma location: unspecified site Qualified Code(s): C43.9 - Malignant melanoma of skin, unspecified (6) Hypertension Status: Chronic Qualifiers: Hypertension type: essential hypertension Qualified Code(s): I10 - Es sential (primary) hypertension Plan: CONTINUE HOME MEDS
[2020-05-26] MEDS: ALBUMIN HUMAN 25%- 100 ML 100 ML IV SCH (21:20)
[2020-05-26] MEDS: LIPITOR TAB 10 MG PO SCH (21:25)
[2020-05-26] MEDS: KLONOPIN TAB 1 MG PO SCH (21:25)
[2020-05-26] MEDS: NORCO 5/325 MG TAB PO PRN (21:27)
--- NOTE | 2020-05-26 21:33 | PCM.PROG ---
Progress Note - Progress Note for Day of Date of Exam: 05/26/20 - Subjective Subjective: IS BEING TREATED FOR PNEUMONIA DUE TO COVID-19 AND HYPOXIA. TODAY, SHE IS ALERT AND ORIENTED, SITTING UP IN BED ON MORNING ROUNDS. SHE CONTINUES WITH SHORTNESS OF BREATH, WEAKNESS, AND COUGH TODAY, BUT CONTINUES TO REPORT IMPROVEMENT IN SYMPTOMS SINCE YESTERDAY. SHE IS UTILIZING HEATED HIGH FLOW OXYGEN AT THIS TIME. ON EXAMINATION, HEART IS REGULAR IN RATE AND RHYTHM. BILATERAL LUNGS ARE NOTED WITH DIMINISHED LUNG SOUNDS THROUGHOUT. ABDOMEN IS ROUND, SOFT, AND NON-TENDER WITH NORMAL BOWEL SOUNDS NOTED IN ALL QUADRANTS. HER VITALS THIS MORNING ARE: 97.5-75-22-93%HHF-142/71. LABS WERE OBTAINED. ABNORMAL LAB VALUES INCLUDE THE FOLLOWING: SODIUM 135, BUN 20, GLUCOSE 231, AST 12, CRP 10.10, TOTAL PROTEIN 6.2, ALBUMIN 2.3. A CHEST XRAY WAS OBTAINED AND REVEALED: No change bilateral interstitial and some patchy alveolar infiltrates. ABG REVEALED: PH 7.440, PC02 47.0, P02 68.0, HC03 31.9, 02 SATURATION 94.0, BASE EXCESS 6.7, FI02 37.0. SHE IS CURRENTLY RECEIVING 1/2NS AT 75 ML/HR, ALBUMIN 25% IV DAILY, LEVAQUIN 500MG IV DAILY, SOLU-MEDROL 80MG IV Q8H, PULMICORT NEBS BID, XOPENEX NEBS Q6H, MUCOMYST IN NEB [place], LOVENOX 40MG SC DAILY, DIFLUCAN 200MG IV DAILY, TUSSIONEX 5ML PO Q12H, ROBITUSSIN DM 10ML PO QID, TESSALON PERLES 200MG PO TID, THE POTASSIUM AND MAGNESIUM PROTOCOLS, AND HER HOME MEDICATIONS WERE RESUMED. WE WILL CONTINUE WITH CURRENT PLAN OF CARE. OTHERWISE, WE PLAN TO FOLLOW UP WITH AM LABS, ABG, AND CHEST XRAY AND CONTINUE TO MONITOR. - Past Medical Family Social History Past Med/Fam/Surg Hx: No changes since H&P Allergies: Allergies indomethacin [From Indocin] Adverse Reaction (Verified 05/16/20 13:43) - Review of Systems ROS: No change since H&P - Vital Signs and I&O's Vital Signs: Temperature 97.2 F Pulse Rate 79 Respiratory Rate 18 Blood Pressure 154/77 O2 Sat by Pulse Oximetry 90 Intake and Output: Intake & Output 05/24/20 05/25/20 05/26/20 05/27/20 11:59 11:59 11:59 11:59 Intake Total 2580 / 2580 2253 / 2253 2503 / 2503 1052 / 1052 Output Total 1200 / 1200 Balance 1380 / 1380 2253 / 2253 2503 / 2503 1052 / 1052 - Physical Exam Oriented: Normal Eyes: Normal Ear: Normal Nose: Normal Throat: Normal Respiratory: Generalized, Diminished Cardiovascular: Normal : Normal Auscultation: Bowel Sounds: Normal Tenderness: Normal Skin: Normal Musculoskeletal: Normal Psychiatric: Normal Mood Description: Calm Affect: Normal Speech Pattern: Clear, Appropriate - Laboratory and Diagnostics Result Diagrams: 05/26/20 04:30 05/26/20 04:30 Labs: 05/16/20 12:10 Blood Blood Culture - Final 05/16/20 12:00 Blood Blood Culture - Final 05/17/20 09:38 Sputum - Expectorated Sputum Sputum Culture - Final 05/17/20 09:38 Sputum - Expectorated Sputum - Final Laboratory WBC 8.0 X10^3/uL (3.6-10.0) 05/26/20 04:30 RBC 4.03 X10^6/uL (3.5-5.4) 05/26/20 04:30 Hgb 12.2 g/dL (12.0-16.0) 05/26/20 04:30 Hct 36.4 % (36.0-47.0) 05/26/20 04:30 MCV 90.3 fL (80.0-100.0) 05/26/20 04:30 MCH 30.2 pg (27.0-34.0) 05/26/20 04:30 MCHC 33.5 g/dL (33.0-35.0) 05/26/20 04:30 RDW 14.5 % (11.6-16.5) 05/26/20 04:30 Plt Count 156 X10^3/uL (150.0-450.0) 05/26/20 04:30 Plt Count Comment Adequate (ADEQUATE) 05/26/20 04:30 MPV 8.8 fL (7.4-11.0) 05/26/20 04:30 Neut % (Auto) 92.0 % (42.0-75.0) H 05/26/20 04:30 Lymph % (Auto) 4.7 % (21.0-51.0) L 05/26/20 04:30 [place] % (Auto) 3.2 % (0.0-13.0) 05/26/20 04:30 Eos % (Auto) 0.0 % (0.9-2.9) L 05/26/20 04:30 Baso % (Auto) 0.1 % (0.2-1.0) L 05/26/20 04:30 Neut # (Auto) 7.4 x10^3/uL (2.2-4.8) H 05/26/20 04:30 Lymph # (Auto) 0.4 X10^3/uL (1.3-2.9) L 05/26/20 04:30 [place] # (Auto) 0.3 x10^3/uL (0.3-0.8) 05/26/20 04:30 Eos # (Auto) 0.0 x10^3/uL (0.0-0.2) 05/26/20 04:30 Baso # (Auto) 0.0 X10^3/uL (0.0-0.1) 05/26/20 04:30 Absolute Nucleated RBC 0.1 /100WBC 05/26/20 04:30 Total Counted 100 05/26/20 04:30 Neutrophils % (Manual) 92 % (39-76) H 05/26/20 04:30 Lymphocytes % (Manual) 6 % (13-43) L 05/26/20 04:30 Monocytes % (Manual) 2 % (4-9) L 05/26/20 04:30 Plt Morphology Comment Normal (NORMAL) 05/26/20 04:30 RBC Morphology Normal (NORMAL) 05/26/20 04:30 Sample Site Rr 05/26/20 05:43 ABG pH 7.440 (7.35-7.45) 05/26/20 05:43 ABG pCO2 47.0 mmHg (35.0-45.0) H 05/26/20 05:43 ABG pO2 68.0 mmHg (80.0-100.0) L 05/26/20 05:43 ABG HCO3 31.9 mmol/L (22-26) H* 05/26/20 05:43 ABG O2 Saturation 94.0 % (90-100) 05/26/20 05:43 ABG Base Excess 6.7 mmol/L (-2.0-2.0) H 05/26/20 05:43 Juan Test Pos 05/26/20 05:43 A-a Gradient 137.0 mmHg 05/26/20 05:43 FiO2 37.0 05/26/20 05:43 Blood Gas Comments Rola well sw 05/26/20 05:43 Sodium 135 mmol/L (136-145) L 05/26/20 04:30 Corrected Sodium 138 mmol/L (136-145) 05/26/20 04:30 Potassium 4.5 mmol/L (3.5-5.1) 05/26/20 04:30 Chloride 100 mmol/L (98-107) 05/26/20 04:30 Carbon Dioxide 28.4 mmol/L (21-32) 05/26/20 04:30 BUN 20 mg/dL (7-18) H 05/26/20 04:30 Creatinine 0.89 mg/dL (0.55-1.02) 05/26/20 04:30 Est GFR (MDRD) Af Amer > 60 (>60) 05/26/20 04:30 Est GFR (MDRD) Non-Af > 60 (>60) 05/26/20 04:30 Glucose 231 mg/dL (65-99) H 05/26/20 04:30 Calcium 8.7 mg/dL (8.5-10.1) 05/26/20 04:30 Corrected Calcium TNP 05/26/20 04:30 Magnesium 2.7 mg/dL (1.7-2.9) 05/23/20 04:35 Ferritin 205 ng/mL (8-252) 05/26/20 04:30 Total Bilirubin 0.70 mg/dL (0.2-1.0) 05/26/20 04:30 AST 12 Units/L (15-37) L 05/26/20 04:30 ALT 28 Units/L (12-78) 05/26/20 04:30 Alkaline Phosphatase 67 Units/L (46-116) 05/26/20 04:30 C-Reactive Protein 10.10 mg/L (0-3.0) H 05/26/20 04:30 Total Protein 6.2 g/dL (6.4-8.2) L 05/26/20 04:30 Albumin 3.9 g/dL (3.4-5.0) 05/26/20 04:30 Globulin 2.3 g/dL (2.5-4.5) L 05/26/20 04:30 Albumin/Globulin Ratio 1.7 Ratio (1.1-2.1) 05/26/20 04:30 Miscellaneous Test Covid igg 05/20/20 04:48 Blood Type O POSITIVE 05/20/20 09:20 - Plan (1) Pneumonia due to COVID-19 virus Status: Acute Plan: 1/2NS AT 75 ML/HR, ALBUMIN 25% IV DAILY, LEVAQUIN 500MG IV DAILY, SOLU- MEDROL 80MG IV Q8H, PULMICORT NEBS BID, XOPENEX NEBS Q6H, MUCOMYST IN NEB [place], LOVENOX 40MG SC DAILY, TUSSIONEX 5ML PO Q12H, ROBITUSSIN DM 10ML PO QID, TESSALON PERLES 200MG PO TID, THE POTASSIUM AND MAGNESIUM PROTOCOLS, AND HER HOME MEDICATIONS WERE RESUMED. (2) Hypoxia Status: Acute (3) Hypokalemia Status: Acute (4) Steroid-induced psychosis Status: Resolved Plan: KLONOPIN 1MG PO BID (5) Melanoma Status: Chronic Qualifiers: Melanoma location: unspecified site Qualified Code(s): C43.9 - Malignant melanoma of skin, unspecified (6) Hypertension Status: Chronic Qualifiers: Hypertension type: essential hypertension Qualified Code(s): I10 - Essential (primary) hypertension Plan: CONTINUE HOME MEDS
[2020-05-27] MEDS: NS 1/2 1000 ML IV 1,000 ML IV SCH ×2 (03:01→15:34)
[2020-05-27 05:19] LABS: ABG BASE EXCESS 8.9 mmol/L (-2.0-2.0)
[2020-05-27 05:20] LABS: ABG HCO3 33.5 mmol/L (22-26)
[2020-05-27] MEDS: XOPENEX 1.25 MG/3 ML NEBULE NEB SCH ×4 (05:23→21:00)
[2020-05-27 06:40] LABS: BASOPHILS % (AUTO) 0.2 % (0.2-1.0); HEMATOCRIT 36.7 % (36.0-47.0); HEMOGLOBIN 12.5 g/dL (12.0-16.0); LYMPHOCYTES # (AUTO) 0.4 X10^3/uL (1.3-2.9); LYMPHOCYTES % (AUTO) 5.1 % (21.0-51.0); MEAN CORPUSCULAR HEMOGLOBIN 30.3 pg (27.0-34.0); MEAN CORPUSCULAR HGB CONC 34.1 g/dL (33.0-35.0); MEAN CORPUSCULAR VOLUME 88.8 fL (80.0-100.0); MEAN PLATELET VOLUME 8.3 fL (7.4-11.0); MONOCYTES # (AUTO) 0.5 x10^3/uL (0.3-0.8); MONOCYTES % (AUTO) 5.9 % (0.0-13.0); NEUTROPHILS # (AUTO) 7.7 x10^3/uL (2.2-4.8); NEUTROPHILS % (AUTO) 88.8 % (42.0-75.0); PLATELET COUNT 140 X10^3/uL (150.0-450.0); RED BLOOD COUNT 4.13 X10^6/uL (3.5-5.4); RED CELL DISTRIBUTION WIDTH 14.3 % (11.6-16.5); WHITE BLOOD COUNT 8.7 X10^3/uL (3.6-10.0)
--- NOTE | 2020-05-27 06:41 | RAD ---
HISTORYSOBSTUDYCHEST, 1 [id number] view of the chestFINDINGSLeft chest wall port with tip in good position. Cardiac silhouette is borderline in size. No significant change in scattered bilateral infiltrates. No pleural effusion or pneumothorax.IMPRESSIONNo significant change.Electronically signed by: Morris Duckworth (May 27, 2020 06:40:27)
[2020-05-27] MEDS: SOLU-Medrol 40 MG VIAL IVP SCH ×3 (06:49→21:14)
[2020-05-27] MEDS: TESSALON PERLES PO SCH ×3 (06:49→21:14)
[2020-05-27 07:27] LABS: ALANINE AMINOTRANSFERASE 20 Units/L (12-78); ALBUMIN 4.1 g/dL (3.4-5.0); ALKALINE PHOSPHATASE 74 Units/L (46-116); ASPARTATE AMINO TRANSFERASE 11 Units/L (15-37); BLOOD UREA NITROGEN 19 mg/dL (7-18); CARBON DIOXIDE 28.8 mmol/L (21-32); CHLORIDE 99 mmol/L (98-107); COR NA(FOR HYPERGLY) 139 mmol/L (136-145); CREATININE 0.83 mg/dL (0.55-1.02); SODIUM 136 mmol/L (136-145); TOTAL PROTEIN 6.4 g/dL (6.4-8.2); eGFR NON BLACK RACES > 60 (>60)
[2020-05-27] MEDS: FLONASE NASAL SPRAY ENOSTRIL SCH (09:08)
[2020-05-27] MEDS: DIFLUCAN 200 MG IV PREMIX* 200 MG/100 ML BAG IV SCH (09:08)
[2020-05-27] MEDS: LOVENOX INJ 40 MG SYR SC SCH (09:09)
[2020-05-27] MEDS: LOPRESSOR TAB 50 MG PO SCH ×2 (09:09→21:13)
[2020-05-27] MEDS: MAXZIDE 37.5/25 MG PO SCH (09:10)
[2020-05-27] MEDS: NYSTATIN SUSP PO SCH ×4 (09:11→21:13)
[2020-05-27] MEDS: MICRO K EXTEN CAP 10 MEQ PO SCH ×2 (09:11→21:13)
[2020-05-27] MEDS: PEPCID TAB 20 MG PO SCH ×2 (09:11→21:13)
[2020-05-27] MEDS: ROBITUSSIN DM PO SCH ×4 (09:12→21:14)
[2020-05-27] MEDS: SINGULAIR TAB 10 MG PO SCH (09:12)
[2020-05-27] MEDS: ZINC SULFATE PO SCH (09:13)
[2020-05-27] MEDS: TUSSIONEX PENNKINETIC SUSP PO SCH ×2 (09:14→21:14)
[2020-05-27] MEDS: SYNTHROID 137 mcg TAB PO SCH (09:15)
[2020-05-27] MEDS: VSL#3 PO SCH (09:16)
[2020-05-27] MEDS: PULMICORT NEB TX 0.5 MG NEB SCH ×2 (09:20→21:00)
[2020-05-27] MEDS: LEVAQUIN PREMIX IV 500 MG 500 MG/100 ML BAG IV SCH (10:15)
[2020-05-27] MEDS ORDERED: NS 1/2 1000 ML IV 1,000 ML IV ONE (15:35)
[2020-05-27] MEDS: ALBUMIN HUMAN 25%- 100 ML 100 ML IV SCH (21:09)
[2020-05-27] MEDS: LIPITOR TAB 10 MG PO SCH (21:12)
[2020-05-27] MEDS: KLONOPIN TAB 1 MG PO SCH (21:12)
[2020-05-27] MEDS: NORCO 5/325 MG TAB PO PRN (21:15)
--- NOTE | 2020-05-27 21:35 | PCM.PROG ---
Progress Note - Progress Note for Day of Date of Exam: 05/27/20 - Subjective Subjective: IS BEING TREATED FOR PNEUMONIA DUE TO COVID-19 AND HYPOXIA. TODAY, SHE IS ALERT AND ORIENTED, SITTING UP IN BED ON MORNING ROUNDS. SHE CONTINUES WITH SHORTNESS OF BREATH AND WEAKNESS, BUT CONTINUES TO REPORT IMPROVEMENT IN SYMPTOMS. SHE IS UTILIZING OXYGEN VIA NASAL CANNULA AT THIS TIME. ON EXAMINATION, HEART IS REGULAR IN RATE AND RHYTHM. BILATERAL LUNGS ARE NOTED WITH DIMINISHED LUNG SOUNDS THROUGHOUT. ABDOMEN IS ROUND, SOFT, AND NON-TENDER WITH NORMAL BOWEL SOUNDS NOTED IN ALL QUADRANTS. HER VITALS THIS MORNING ARE: 97.7-84-19-98%NC-152/73. LABS WERE OBTAINED. ABNORMAL LAB VALUES INCLUDE THE FOLLOWING: PLT COUNT 140, BUN 19, GLUCOSE 219, AST 11, CRP 4.80, GLOBULIN 2.3. A CHEST XRAY WAS OBTAINED AND REVEALED: Left chest wall port with tip in good position. Cardiac silhouette is borderline in size. No significant change in scattered bilateral infiltrates. No pleural effusion or pneumothorax. ABG REVEALED: PH 7.480, PC02 45.0, P02 67.0, HC03 33.5, 02 SATURATION 94.0, BASE EXCESS 8.9, FI02 36.0. SHE IS CURRENTLY RECEIVING 1/2NS AT 75 ML/HR, ALBUMIN 25% IV DAILY, LEVAQUIN 500MG IV DAILY, SOLU-MEDROL 80MG IV Q8H, PULMICORT NEBS BID, XOPENEX NEBS Q6H, MUCOMYST IN NEB [place], LOVENOX 40MG SC DAILY, DIFLUCAN 200MG IV DAILY, TUSSIONEX 5ML PO Q12H, ROBITUSSIN DM 10ML PO QID, TESSALON PERLES 200MG PO TID, THE POTASSIUM AND MAGNESIUM PROTOCOLS, AND HER HOME MEDICATIONS WERE RESUMED. WE WILL CONTINUE WITH CURRENT PLAN OF CARE. OTHERWISE, WE PLAN TO FOLLOW UP WITH AM LABS, ABG, AND CHEST XRAY AND CONTINUE TO MONITOR. - Past Medical Family Social History Past Med/Fam/Surg Hx: No changes since H&P Allergies: Allergies indomethacin [From Indocin] Adverse Reaction (Verified 05/16/20 13:43) - Review of Systems ROS: No change since H&P - Vital Signs and I&O's Vital Signs: Temperature 97.7 F Pulse Rate 79 Respiratory Rate 18 Blood Pressure 141/71 O2 Sat by Pulse Oximetry 93 Intake and Output: Intake & Output 05/25/20 05/26/20 05/27/20 05/28/20 11:59 11:59 11:59 11:59 Intake Total 2253 / 2253 2503 / 2503 3357 / 3357 900 / 900 Balance 2253 / 2253 2503 / 2503 3357 / 3357 900 / 900 - Physical Exam Oriented: Normal Eyes: Normal Ear: Normal Nose: Normal Throat: Normal Respiratory: Generalized, Diminished Cardiovascular: Normal : Normal Auscultation: Bowel Sounds: Normal Tenderness: Normal Skin: Normal Musculoskeletal: Normal Psychiatric: Normal Mood Description: Calm Affect: Normal Speech Pattern: Clear, Appropriate - Laboratory and Diagnostics Result Diagrams: 05/27/20 04:30 05/27/20 04:30 Labs: 05/16/20 12:10 Blood Blood Culture - Final 05/16/20 12:00 Blood Blood Culture - Final 05/17/20 09:38 Sputum - Expectorated Sputum Sputum Culture - Final 05/17/20 09:38 Sputum - Expectorated Sputum - Final Laboratory WBC 8.7 X10^3/uL (3.6-10.0) 05/27/20 04:30 RBC 4.13 X10^6/uL (3.5-5.4) 05/27/20 04:30 Hgb 12.5 g/dL (12.0-16.0) 05/27/20 04:30 Hct 36.7 % (36.0-47.0) 05/27/20 04:30 MCV 88.8 fL (80.0-100.0) 05/27/20 04:30 MCH 30.3 pg (27.0-34.0) 05/27/20 04:30 MCHC 34.1 g/dL (33.0-35.0) 05/27/20 04:30 RDW 14.3 % (11.6-16.5) 05/27/20 04:30 Plt Count 140 X10^3/uL (150.0-450.0) L 05/27/20 04:30 Plt Count Comment Adequate (ADEQUATE) 05/26/20 04:30 MPV 8.3 fL (7.4-11.0) 05/27/20 04:30 Neut % (Auto) 88.8 % (42.0-75.0) H 05/27/20 04:30 Lymph % (Auto) 5.1 % (21.0-51.0) L 05/27/20 04:30 [place] % (Auto) 5.9 % (0.0-13.0) 05/27/20 04:30 Eos % (Auto) 0.0 % (0.9-2.9) L 05/27/20 04:30 Baso % (Auto) 0.2 % (0.2-1.0) 05/27/20 04:30 Neut # (Auto) 7.7 x10^3/uL (2.2-4.8) H 05/27/20 04:30 Lymph # (Auto) 0.4 X10^3/uL (1.3-2.9) L 05/27/20 04:30 [place] # (Auto) 0.5 x10^3/uL (0.3-0.8) 05/27/20 04:30 Eos # (Auto) 0.0 x10^3/uL (0.0-0.2) 05/27/20 04:30 Baso # (Auto) 0.0 X10^3/uL (0.0-0.1) 05/27/20 04:30 Absolute Nucleated RBC 0.1 /100WBC 05/27/20 04:30 Total Counted 100 05/26/20 04:30 Neutrophils % (Manual) 92 % (39-76) H 05/26/20 04:30 Lymphocytes % (Manual) 6 % (13-43) L 05/26/20 04:30 Monocytes % (Manual) 2 % (4-9) L 05/26/20 04:30 Plt Morphology Comment Normal (NORMAL) 05/26/20 04:30 RBC Morphology Normal (NORMAL) 05/26/20 04:30 Sample Site Lb 05/27/20 05:13 ABG pH 7.480 (7.35-7.45) H 05/27/20 05:13 ABG pCO2 45.0 mmHg (35.0-45.0) 05/27/20 05:13 ABG pO2 67.0 mmHg (80.0-100.0) L 05/27/20 05:13 ABG HCO3 33.5 mmol/L (22-26) H* 05/27/20 05:13 ABG O2 Saturation 94.0 % (90-100) 05/27/20 05:13 ABG Base Excess 8.9 mmol/L (-2.0-2.0) H 05/27/20 05:13 Juan Test N/a 05/27/20 05:13 A-a Gradient 133.0 mmHg 05/27/20 05:13 FiO2 36.0 05/27/20 05:13 Blood Gas Comments Rola well ae 05/27/20 05:13 Sodium 136 mmol/L (136-145) 05/27/20 04:30 Corrected Sodium 139 mmol/L (136-145) 05/27/20 04:30 Potassium 3.9 mmol/L (3.5-5.1) 05/27/20 04:30 Chloride 99 mmol/L (98-107) 05/27/20 04:30 Carbon Dioxide 28.8 mmol/L (21-32) 05/27/20 04:30 BUN 19 mg/dL (7-18) H 05/27/20 04:30 Creatinine 0.83 mg/dL (0.55-1.02) 05/27/20 04:30 Est GFR (MDRD) Af Amer > 60 (>60) 05/27/20 04:30 Est GFR (MDRD) Non-Af > 60 (>60) 05/27/20 04:30 Glucose 219 mg/dL (65-99) H 05/27/20 04:30 Calcium 9.0 mg/dL (8.5-10.1) 05/27/20 04:30 Corrected Calcium TNP 05/27/20 04:30 Magnesium 2.7 mg/dL (1.7-2.9) 05/23/20 04:35 Ferritin 208 ng/mL (8-252) 05/27/20 04:30 Total Bilirubin 0.60 mg/dL (0.2-1.0) 05/27/20 04:30 AST 11 Units/L (15-37) L 05/27/20 04:30 ALT 20 Units/L (12-78) 05/27/20 04:30 Alkaline Phosphatase 74 Units/L (46-116) 05/27/20 04:30 C-Reactive Protein 4.80 mg/L (0-3.0) H 05/27/20 04:30 Total Protein 6.4 g/dL (6.4-8.2) 05/27/20 04:30 Albumin 4.1 g/dL (3.4-5.0) 05/27/20 04:30 Globulin 2.3 g/dL (2.5-4.5) L 05/27/20 04:30 Albumin/Globulin Ratio 1.8 Ratio (1.1-2.1) 05/27/20 04:30 Miscellaneous Test Covid 19 05/24/20 10:04 Blood Type O POSITIVE 05/20/20 09:20 - Plan (1) Pneumonia due to COVID-19 virus Status: Acute Plan: 1/2NS AT 75 ML/HR, ALBUMIN 25% IV DAILY, LEVAQUIN 500MG IV DAILY, SOLU- MEDROL 80MG IV Q8H, PULMICORT NEBS BID, XOPENEX NEBS Q6H, MUCOMYST IN NEB [place], LOVENOX 40MG SC DAILY, TUSSIONEX 5ML PO Q12H, ROBITUSSIN DM 10ML PO QID, TESSALON PERLES 200MG PO TID, THE POTASSIUM AND MAGNESIUM PROTOCOLS, AND HER HOME MEDICATIONS WERE RESUMED. (2) Hypoxia Status: Acute (3) Hypokalemia Status: Acute (4) Steroid-induced psychosis Status: Resolved Plan: KLONOPIN 1MG PO BID (5) Melanoma Status: Chronic Qualifiers: Melanoma location: unspecified site Qualified Code(s): C43.9 - Malignant melanoma of skin, unspecified (6) Hypertension Status: Chronic Qualifiers: Hypertension type: essential hypertension Qualified Code(s): I10 - Essential (primary) hypertension Plan: CONTINUE HOME MEDS
[2020-05-28] MEDS: NORCO 5/325 MG TAB PO PRN (05:16)
[2020-05-28] MEDS: TESSALON PERLES PO SCH (05:16)
[2020-05-28] MEDS: SOLU-Medrol 40 MG VIAL IVP SCH (05:17)
[2020-05-28] MEDS: NS 1/2 1000 ML IV 1,000 ML IV SCH (05:32)
[2020-05-28 05:51] LABS: ABG ALLEN TEST POS; ABG BASE EXCESS 8.1 mmol/L (-2.0-2.0)
[2020-05-28] MEDS: XOPENEX 1.25 MG/3 ML NEBULE NEB SCH (06:00)
--- NOTE | 2020-05-28 06:23 | RAD ---
HISTORYSOBSTUDYCHEST, 1 [id number]/13/2020TECHNIQUEAP view of the chestFINDINGSCardiac and mediastinal contours are stable. Left chest wall port with tip in stable position. Stable bilateral airspace and interstitial opacities with upper lobe predominance. No pleural effusion or pneumothorax.IMPRESSIONNo significant change.Electronically signed by: Morris Duckworth (May 28, 2020 06:23:03)
[2020-05-28 06:28] LABS: BASOPHILS % (AUTO) 0.3 % (0.2-1.0); HEMATOCRIT 37.5 % (36.0-47.0); HEMOGLOBIN 12.3 g/dL (12.0-16.0); LYMPHOCYTES # (AUTO) 0.6 X10^3/uL (1.3-2.9); LYMPHOCYTES % (AUTO) 4.8 % (21.0-51.0); MEAN CORPUSCULAR HEMOGLOBIN 29.7 pg (27.0-34.0); MEAN CORPUSCULAR HGB CONC 32.9 g/dL (33.0-35.0); MEAN CORPUSCULAR VOLUME 90.2 fL (80.0-100.0); MEAN PLATELET VOLUME 8.1 fL (7.4-11.0); MONOCYTES # (AUTO) 0.6 x10^3/uL (0.3-0.8); NEUTROPHILS # (AUTO) 11.5 x10^3/uL (2.2-4.8); NEUTROPHILS % (AUTO) 89.9 % (42.0-75.0); PLATELET COUNT 139 X10^3/uL (150.0-450.0); RED BLOOD COUNT 4.15 X10^6/uL (3.5-5.4); RED CELL DISTRIBUTION WIDTH 14.5 % (11.6-16.5); WHITE BLOOD COUNT 12.8 X10^3/uL (3.6-10.0)
[2020-05-28 06:49] LABS: ALANINE AMINOTRANSFERASE 22 Units/L (12-78); ALBUMIN 4.4 g/dL (3.4-5.0); ALKALINE PHOSPHATASE 55 Units/L (46-116); ASPARTATE AMINO TRANSFERASE 13 Units/L (15-37); BLOOD UREA NITROGEN 18 mg/dL (7-18); CALCIUM 8.8 mg/dL (8.5-10.1); CARBON DIOXIDE 28.9 mmol/L (21-32); CHLORIDE 96 mmol/L (98-107); COR NA(FOR HYPERGLY) 135 mmol/L (136-145); CREATININE 0.89 mg/dL (0.55-1.02); SODIUM 133 mmol/L (136-145); TOTAL PROTEIN 6.6 g/dL (6.4-8.2); eGFR NON BLACK RACES > 60 (>60)
[2020-05-28] MEDS: NYSTATIN SUSP PO SCH (08:53)
[2020-05-28] MEDS: LOVENOX INJ 40 MG SYR SC SCH (08:53)
[2020-05-28] MEDS: ZINC SULFATE PO SCH (08:54)
[2020-05-28] MEDS: PEPCID TAB 20 MG PO SCH (08:54)
[2020-05-28] MEDS: ROBITUSSIN DM PO SCH (08:54)
[2020-05-28] MEDS: SYNTHROID 137 mcg TAB PO SCH (08:54)
[2020-05-28] MEDS: FLONASE NASAL SPRAY ENOSTRIL SCH (08:55)
[2020-05-28] MEDS: MICRO K EXTEN CAP 10 MEQ PO SCH (08:55)
[2020-05-28] MEDS: SINGULAIR TAB 10 MG PO SCH (08:55)
[2020-05-28] MEDS: LEVAQUIN PREMIX IV 500 MG 500 MG/100 ML BAG IV SCH (08:55)
[2020-05-28] MEDS: LOPRESSOR TAB 50 MG PO SCH (08:55)
[2020-05-28] MEDS: MAXZIDE 37.5/25 MG PO SCH (08:55)
[2020-05-28] MEDS: VSL#3 PO SCH (09:05)
[2020-05-28] MEDS: PULMICORT NEB TX 0.5 MG NEB SCH (10:00)
[2020-05-28] MEDS: TUSSIONEX PENNKINETIC SUSP PO SCH (10:07)
[2020-05-28] MEDS: DIFLUCAN 200 MG IV PREMIX* 200 MG/100 ML BAG IV SCH (10:07)
[2020-05-28 12:13] VITALS: BP 136/89
== END 2020-05-28 12:50 | disposition home or self-care (01) | DRG 177 ==
LOC: ICU 10:18 → MED/SURG 05-27 17:31
PROVIDERS: ADMIT Internal Medicine; ATTEND Internal Medicine
DX: E78.5 Hyperlipidemia, unspecified; R41.82 Altered mental status, unspecified; C43.9 Malignant melanoma of skin, unspecified; J12.89 Other viral pneumonia; E87.6 Hypokalemia; R00.0 Tachycardia, unspecified; T38.0X5A Adverse effect of glucocorticoids and synthetic analogues, initial encounter; Y92.230 Patient room in hospital as the place of occurrence of the external cause; R09.02 Hypoxemia; U07.1 COVID-19; I10 Essential (primary) hypertension